=== PATIENT | female | born 1955 | race Caucasian/White ===

== ENCOUNTER → 2016-08-03 | Outpatient (CLI) | payer OTHER, MEDICARE ==
[~2016-08-03] MED LIST: ALBU0.5N2 NEB; ALBU18002 INH; ALBUAER INH; ASCO500T16 PO; CALC-354 PO; CHOL1000 PO; CLON1TAB3 PO; CLR10 PO; CYAN100020 PO; CYCL10TA6 PO; DICL1GEL28 TOP; DICL1GEL34 TOP; FLAX10007 PO; FLUT0.15 NAE; HYDR-4079 PO; HYDR-5688 PO; HYDR25TA4 PO; LEVO25TA PO; MELO15TA4 PO; MISCCAP80 PO; MULT-513 PO; Magnesium PO; PRED20TA PO; SERT50TA PO
--- NOTE | 2016-08-03 17:08 | DIAGNOSTIC IMAGING REPORT ---
MRI OF LUMBAR SPINE WITHOUT IV CONTRAST CLINICAL HISTORY: Low back pain. Right buttock pain. COMPARISON STUDY: Abdominal CT dated 12/23/2010. TECHNIQUE: MRI of the lumbar spine is performed utilizing various T1 and T2-weighted sequences in the axial and sagittal planes. IV contrast was not administered for this examination. FINDINGS: Lumbar spine: There is a mild chronic superior endplate compression deformity of L1. Vertebral body height is otherwise maintained throughout the lumbar spine. Alignment is preserved. There are postoperative changes from laminectomy at L4 and L5. There is no evidence of spondylolysis. The transverse and remaining spinous processes appear preserved. No destructive bony lesion is seen. Small hemangiomas are noted in the body of L4. Chronic degenerative endplate changes identified at L5-S1. Mild degenerative endplate edema is noted at L3-L4. Intervertebral discs: There is degenerative disc desiccation and loss of height throughout the lumbar spine. This is advanced at L5-S1. Spinal cord: The visualized spinal cord is normal in morphology and signal intensity. The conus medullaris terminates at the level of L1. There is tethering of the nerve roots of the cauda equina at L3-L4. L1-L2: There is a minimal posterior disc bulge. The central canal and neural foramina are patent. L2-L3: There is broad-based posterior disc bulge with annular fissure. In conjunction with hypertrophy of the ligamentum flavum, this causes mild acquired compromise of the central canal. The minimum AP canal diameter measures 8 mm. There is bilateral subarticular stenosis. The neural foramina are patent. Facet arthropathy is of no consequence. L3-L4: There is broad-based posterior disc bulge with annular fissure. In conjunction with hypertrophy of the ligamentum flavum, there is severe central canal stenosis at this level. The minimum AP diameter measures 1-2 mm. There may be impingement on the exiting bilateral L3 nerve roots as well as the transiting nerve roots. There is bilateral subarticular stenosis. Facet hypertrophy causes mild left greater than right neural foraminal stenosis. L4-L5: The central canal is patent. Facet arthropathy is of no consequence. There is a small disc fragment versus scarring/osteophyte formation eccentric to the left. This causes mass effect on the anterior left aspect of the thecal sac, and impinges on the transiting left-sided nerve roots. This is best seen on axial image 22. L5-S1: Facet arthropathy is of no consequence. The central canal and neural foramina are widely patent. Soft tissues: There is mild fatty atrophy of the paraspinous musculature. Postoperative change is seen at L4 and L5. The partially imaged retroperitoneal structures are grossly unremarkable noting left parapelvic renal cysts. The retroperitoneal structures are not well visualized. Sacrum: The visualized sacrum is normal in morphology and signal intensity. IMPRESSION: 1. Lumbosacral spondylosis with severe acquired compromise of the central canal at L3-L4. 2. There is a disc fragment versus scarring and osteophyte formation seen anteriorly and on the left at L4-L5. This impinges on the transiting left-sided nerve roots. 3. Spondylotic change at additional levels as above. See discussion for detailed level by level analysis. 4. There is a mild chronic compression deformity of L1. 5. There are postoperative changes from L4 and L5 laminectomy. Dictated: 08/03/2016 4:38 PM Transcribed: 08/03/2016 5:06 PM JOVITA_Jose Carlos Electronically signed by: Matt Fontenot M.D. 08/03/2016 5:08 PM Dictated Date/Time: 08/03/2016 4:38 PM
== END | disposition home or self-care (01) ==
LOC: C.MRI 15:46
PROVIDERS: ATTEND Orthopaedic Surgery Orthopaedic Surgery of the Spine
DX: M54.5 Low back pain (principal); M47.817 Spondylosis without myelopathy or radiculopathy, lumbosacral region; M47.816 Spondylosis without myelopathy or radiculopathy, lumbar region

== ENCOUNTER 2016-10-03 21:39 | Emergency (ER) | payer OTHER, MEDICARE ==
[~2016-10-03] VITALS: Ht 157.5 cm; Wt 91.1 kg
[~2016-10-03 21:39] MED LIST changes: -ALBU0.5N2 NEB; -ALBU18002 INH; -ASCO500T16 PO; -CLR10 PO; -DICL1GEL34 TOP; -HYDR-5688 PO; -MISCCAP80 PO; -PRED20TA PO
[2016-10-03 21:44] VITALS: BP 140/77; PULSE 120; TEMP 37; O2SAT 96; Ht 157.5 cm; Wt 91.1 kg
[2016-10-03] MEDS ORDERED: ALBU18002 INH (21:57)
[2016-10-03] MEDS ORDERED: DICL1GEL34 TOP (22:01)
[2016-10-03] MEDS ORDERED: GELATIN SPONGE 12-7MM ONE (22:02)
--- NOTE | 2016-10-04 06:40 | EMERGENCY ROOM VISIT NOTE ---
ED Visit Note First contact with patient: 21:51 CHIEF COMPLAINT: Finger laceration HISTORY OF PRESENT ILLNESS: This 60-year-old female patient presents to the emergency department after cutting the left thumb with a kitchen knife just prior to arrival. The bleeding has stopped. Denies weakness or numbness of the finger. The patient has full range of motion of the fingers. The patient rates the pain as dull and 4/10. The patient denies any other injuries. The patient' s tetanus shot is reportedly up to date. REVIEW OF SYSTEMS: A 6 system review of systems was completed with positives and pertinent negatives listed in the HPI. ALLERGIES: Oxycodone, penicillin MEDICATIONS: See EMR PMH: See EMR SOCIAL HISTORY: Lives locally with family PHYSICAL EXAM: Vital Signs: Reviewed Nurse's notes, vital signs stable. GENERAL : White female, in no acute distress, well developed, well nourished. SKIN: There is a 1.0 cm avulsion laceration to the very distal aspect of the left first finger. The edges do not gape apart with traction. There is no foreign material in the wound and it looks clean. There is mild bleeding. No deep structures such as tendons, bones, or significant blood vessels are seen in the base of the wound. Extension and flexion of the finger is full and strong. Full range of motion of the wrist and other fingers. Capillary refill less than 2 seconds. Normal sensation to light and sharp touch. EMERGENCY DEPARTMENT COURSE: Physical exam and history were performed. Nursing notes and EMR were reviewed. The patient appears to have suffered an avulsion laceration to the distal aspect of her left thumb. The fingernail is in place and the wound does not appear deep. The area was cleansed with Betadine and flushed with saline. A Gelfoam dressing was placed and hemostasis was accomplished. The patient is reportedly up-to-date on her tetanus and this was deferred. Overall the patient appears stable for discharge home and wound care instructions were discussed. She is invited back to the ER anytime with any new, worsening, or concerning symptoms. Problem List Medical Problems: (1) Chronic constipation Status: Chronic (2) Colitis Status: Resolved (3) Nausea Status: Resolved (4) Sciatic neuropathy Status: Chronic Surgical Problems: (1) Hx of splenectomy Status: Chronic Current/Historical Medications Scheduled Calcium Carbonate-Cholecalcife (Caltrate 600+D), 1 TAB PO BID Cholecalciferol (Vitamin D3), 1 TAB PO QAM Clonazepam (Klonopin), 1 MG PO HS Cyanocobalamin (Vitamin B12), 1 TAB PO QAM Cyclobenzaprine Hcl (Flexeril), 10 MG PO HS Flaxseed (Linseed) (Flax Seed Oil), 1 CAP PO QAM Hydrochlorothiazide (Hctz), 25 MG PO QAM Levothyroxine Sodium (Synthroid), 1 TAB PO DAILY Meloxicam (Mobic), 15 MG PO QAM Multivitamins/Minerals (Mvi With Minerals), 1 TAB PO QAM Sertraline (Zoloft), 50 MG PO HS [Magnesium], 250 MG PO DAILY Scheduled PRN Albuterol Sulfate (Proair Respiclick), 2 PUFFS INH QID PRN for SOB/Wheezing Diclofenac Sodium (Topical) (Diclofenac Sodium), 1 APPLN TOP QID PRN for Pain Fluticasone Propionate (Nasal) (Flonase Allergy Relief), 2 SPRAYS KATHY DAILY PRN for Allergy Symptoms Hydrocodone/Acetaminophen 10MG/325MG ([place] 10MG/325MG), 1-2 TABS PO UD PRN for Pain Allergies Coded Allergies: Oxycodone (Verified Allergy, Mild, ITCHING, 10/03/16) Penicillins (Verified Allergy, Unknown, UNKNOWN RXN, OCCURED A CHILD, ) Vital Signs Date Time Temp Pulse Resp B/P Pulse Ox O2 Delivery O2 Flow Rate FiO2 10/03/16 21:44 37.0 120 18 140/77 96 Room Air Departure Information Impression Primary Impression: Finger avulsion Dispostion Home / Self-Care Condition GOOD Forms WORK / SCHOOL INSTRUCTIONS, HOME CARE DOCUMENTATION FORM, IMPORTANT VISIT INFORMATION Patient Instructions My [facility] Additional Instructions You were seen and evaluated today on an emergency basis only. This is not a substitute for, or an effort to provide, complete comprehensive medical care. It is not possible to recognize and treat all injuries or illnesses in a single emergency department visit. For this reason it is recommended that you followup with your primary care physician with any ongoing or persistent symptoms. Your Gelfoam will need to stay in place for about 48 hours. You are welcome to return to the emergency department anytime with new, worsening, or concerning symptoms.
[2016-10-16] MEDS ORDERED: HYDR-5688 PO (08:54)
== END 2016-10-03 22:29 | disposition home or self-care (01) ==
LOC: C.EDB 21:40 → C.EDD 22:29
DX: S61.012A Laceration without foreign body of left thumb without damage to nail, initial encounter (principal); W26.0XXA Contact with knife, initial encounter; Z90.81 Acquired absence of spleen

== ENCOUNTER 2016-10-14 11:31 | Inpatient (IN) | payer OTHER, MEDICARE ==
[2016-09-15 11:30] VITALS: BMI 37.0
--- NOTE | 2016-09-15 12:12 | PAT Medication Instructions ---
Service Date Sep 15, 2016. Current Home Medication List Albuterol (Proventil Hfa), 2 PUFFS INH QID PRN for Wheezing Calcium Carbonate-Cholecalcife (Caltrate 600+D), 1 TAB PO BID Cholecalciferol (Vitamin D3), 1 TAB PO QAM Clonazepam (Klonopin), 1 MG PO HS Cyanocobalamin (Vitamin B12), 1 TAB PO QAM Cyclobenzaprine Hcl (Flexeril), 10 MG PO HS Diclofenac Sod (Voltaren 1% Top Gel), 1 APPLN TOP QID PRN for Pain Flaxseed (Linseed) (Flax Seed Oil), 1 CAP PO QAM Fluticasone Propionate (Nasal) (Flonase Allergy Relief), 2 SPRAYS KATHY DAILY PRN for Allergy Symptoms Hydrochlorothiazide (Hctz), 25 MG PO QAM Hydrocodone/Acetaminophen 10MG/325MG (Spicer 10MG/325MG), 1-2 TABS PO UD PRN for Pain Meloxicam (Mobic), 15 MG PO QAM Multivitamins/Minerals (Mvi With Minerals), 1 TAB PO QAM Sertraline (Zoloft), 50 MG PO HS Medication Instructions For Your Scheduled Surgery Meloxicam (Mobic), 15 MG PO QAM (patient will check with surgeon for instructions) - Hold the following medications 2 weeks prior to surgery: Flaxseed (Linseed) (Flax Seed Oil), 1 CAP PO QAM - Hold the following medications 24 hours prior to surgery: Diclofenac Sod (Voltaren 1% Top Gel), 1 APPLN TOP QID PRN for Pain - Hold the following medications the morning of surgery: Multivitamins/Minerals (Mvi With Minerals), 1 TAB PO QAM Hydrochlorothiazide (Hctz), 25 MG PO QAM Cyanocobalamin (Vitamin B12), 1 TAB PO QAM Cholecalciferol (Vitamin D3), 1 TAB PO QAM Calcium Carbonate-Cholecalcife (Caltrate 600+D), 1 TAB PO BID - Take the following medications the morning of surgery with a sip of water: Hydrocodone/Acetaminophen 10MG/325MG (Spicer 10MG/325MG), 1-2 TABS PO UD PRN for Pain (can take up to four hours prior to surgery if needed) Fluticasone Propionate (Nasal) (Flonase Allergy Relief), 2 SPRAYS KATHY DAILY PRN for Allergy Symptoms Albuterol (Proventil Hfa), 2 PUFFS INH QID PRN for Wheezing (bring with you to hospital on day of surgery) - Take the following medications as scheduled the night before surgery: Sertraline (Zoloft), 50 MG PO HS Hydrocodone/Acetaminophen 10MG/325MG (Spicer 10MG/325MG), 1-2 TABS PO UD PRN for Pain Fluticasone Propionate (Nasal) (Flonase Allergy Relief), 2 SPRAYS KATHY DAILY PRN for Allergy Symptoms Cyclobenzaprine Hcl (Flexeril), 10 MG PO HS Clonazepam (Klonopin), 1 MG PO HS Calcium Carbonate-Cholecalcife (Caltrate 600+D), 1 TAB PO BID Albuterol (Proventil Hfa), 2 PUFFS INH QID PRN for Wheezing If you have any questions please call us at [phone] or [phone] ( Lilly) or [phone]
[2016-09-15 13:10] LABS: BASO % 0.8 %; BASO ABS # 0.06 K/uL (0-0.2); COMPLETE YES; EOS % 1.8 %; HEMATOCRIT 39.1 % (37-47); IG% 0.1 %; LYMPH % 30.5 %; LYMPH ABS # 2.25 K/uL (1.2-3.4); MEAN CELL VOLUME 91.8 fL (80-100); MEAN CORPUSCULAR HEMOGLOBIN 32.9 pg (25-34); MEAN CORPUSCULAR HGB CONC 35.8 g/dl (32-36); MEAN PLATELET VOLUME 9.2 fL (7.4-10.4); MONO % 8.8 %; PLATELET COUNT 420 K/uL (130-400); RED BLOOD COUNT 4.26 M/uL (4.2-5.4); WHITE BLOOD COUNT 7.37 K/uL (4.8-10.8)
[2016-09-15 13:21] LABS: URINE APPEARANCE CLEAR (CLEAR); URINE BILIRUBIN NEG (NEG); URINE COLOR YELLOW; URINE EPITHELIAL CELL AUTO 0-5 /lpf (0-5); URINE NITRITE NEG (NEG); URINE PH 6.5 (4.5-7.5); URINE SPECIFIC GRAVITY 1.004 (1.000-1.030); UROBILINOGEN NEG (NEG)
[2016-09-15 13:28] LABS: MANUAL MICROSCOPIC REQUIRED? NO; REVIEW REQ? NO
[2016-09-15 13:47] LABS: BUN/CREATININE RATIO 19.2 (10-20); CALCIUM 9.2 mg/dl (8.5-10.1); CREATININE 0.91 mg/dl (0.60-1.20); POTASSIUM 3.9 mmol/L (3.5-5.1)
[2016-09-15 14:43] LABS: THYROID STIMULATING HORMONE 6.3 uIu/ml (0.300-4.500)
--- NOTE | 2016-10-13 12:06 | HISTORY & PHYSICAL EXAMINATION ---
DATE OF ADMISSION: 10/14/2016 HISTORY OF PRESENT ILLNESS: The patient presents to our office with complaint of left leg pain greater than right, involving the anterior thighs and shins. With prolonged standing she has hypersensitivity as well as numbness into the left foot. Denies bowel or bladder dysfunction. She has undergone prior discectomy in 1994 as well as 1997 and third surgery including lumbar fusion L4-S1 in 2000 in [place], [place]. She takes [place] rarely for pain control. PAST MEDICAL HISTORY: The patient's medical history is significant for asthma, anxiety, hypothyroidism, spherocytosis, obesity. PAST SURGICAL HISTORY: Significant for multiple lumbar surgeries, knee replacement, bilateral tubal ligation, eye surgery, splenectomy, left shoulder surgery, arthrocentesis of the right knee. ALLERGIES: INCLUDE PENICILLIN, TYLENOL AND OXYCODONE. FAMILY HISTORY: Significant for breast cancer, arthritis, [place] and stroke. SOCIAL HISTORY: She works at [employer]. She is . She has 2 children. Alcohol is a glass of wine every week. Tobacco use she denies. REVIEW OF SYSTEMS: Significant for back pain and leg pain. PHYSICAL EXAMINATION: HEAD, EYES, EARS, NOSE, AND THROAT: Speech appropriate. CARDIOPULMONARY: No gross abnormalities. ABDOMEN: Soft, nontender. GENITOURINARY: Deferred. NEUROLOGIC: Cranial nerves II-XII grossly intact. MUSCULOSKELETAL: Ambulates with an independent steady gait. She has well-healed lumbar incision. Strength is intact bilateral lower extremities. Sensation is intact. ASSESSMENT: Spinal stenosis L3-4. PLAN: At this point in time, we have discussed surgical intervention which would require lumbar decompression L3-4, possible L4-5, instrumented fusion L3-4, L4-5. Risks, benefits, pros, cons and alternatives were outlined in detail. She would like to proceed with the above-mentioned surgical planning.
[~2016-10-14] VITALS: Ht 157.5 cm; Wt 92.5 kg
[2016-10-14] VITALS (9 sets, daily range): BP systolic 114–125; BP diastolic 71–82; PULSE 75–117; TEMP 36.3–37; O2SAT 72–99; Ht 157.5 cm; Wt 92.5 kg
--- NOTE | 2016-10-14 07:30 | History & Physical Bridge Note ---
H&P Re-Evaluation Bridge Note: I have examined the patient, reviewed the History & Physical and in the interval since the performance of the History & Physical I have noted the following changes of clinical significance: No changes noted
[~2016-10-14 11:31] MED LIST changes: +ALBU18002 INH; -ALBUAER INH; +ATROPINE SULFATE 0.1 MG/ML 5ML SYR IV PRN; +CEFAZOLIN 2000 MG/60 ML D5W IV SCH; -DICL1GEL28 TOP; +DICL1GEL34 TOP; +EpHEDrine SULFATE INJ 50 MG/ML AMP IV PRN; +FENTANYL CITRATE INJ 50 MCG/1 ML 2 ML VIAL IV PRN; +LACTATED RINGER'S 1000ML 1,000 ML IV SCH; +ONDANSETRON INJ 2 MG/ML 2 ML VIAL IV PRN
[2016-10-14] MEDS ORDERED: CLR10 PO (12:18)
[2016-10-14] MEDS ORDERED: CEFAZOLIN IV 2,000 MG/60 ML D5W IV ONE (12:27)
[2016-10-14] MEDS ORDERED: FENTANYL CITRATE INJ 50 MCG/1 ML 2 ML VIAL ONE ×3 (14:22→17:12)
[2016-10-14] MEDS ORDERED: MIDAZOLAM HCL 1 MG/ML 2ML VIAL ONE (14:22)
[2016-10-14] MEDS ORDERED: PROPOFOL IV EMULSION 10 MG/ML 20 ML VIAL IV ONE (14:29)
[2016-10-14] MEDS ORDERED: ROCURONIUM BROMIDE 10 MG/ML 5 ML VIAL ONE (14:29)
[2016-10-14] MEDS ORDERED: LIDOCAINE HCL 2% 2 ML VIAL (20MG/ML) ONE (14:29)
[2016-10-14] MEDS ORDERED: SODIUM CHLORIDE 0.9% PF 50 ML VIAL ONE (14:34)
[2016-10-14] MEDS ORDERED: BUPIVACAINE/EPINEPHRINE 0.5% MPF 1:200,000 30 ML VIAL ONE (14:34)
[2016-10-14] MEDS ORDERED: BACITRACIN 50000 UNIT VIAL ONE (14:34)
[2016-10-14] MEDS ORDERED: NURSING VERBAL MED ORDER STA (14:37)
[2016-10-14] MEDS ORDERED: CLINDAMYCIN 600 MG/54 ML D5W IV ONE (14:41)
[2016-10-14] MEDS ORDERED: ONDANSETRON INJ 2 MG/ML 2 ML VIAL ONE (15:09)
[2016-10-14] MEDS ORDERED: GLYCOPYRROLATE INJ 0.2 MG/ML VIAL ONE (15:09)
[2016-10-14] MEDS ORDERED: NEOSTIGMINE METHYLSULFATE 1 MG/ML 10ML VIAL ONE (15:09)
[2016-10-14] MEDS ORDERED: DEXAMETHASONE SOD INJ 4 MG/ML VIAL ONE (15:09)
[2016-10-14] MEDS ORDERED: HYDROmorphone INJ 2 MG/ML SYR/VIAL ONE (15:23)
[2016-10-14] MEDS ORDERED: FLOSEAL HEMOSTATIC MATRIX 10ML TOP ONE (16:07)
[2016-10-14] MEDS ORDERED: SODIUM CHLORIDE 0.9% 1000ML 1,000 ML IV SCH (16:14)
[2016-10-14] MEDS ORDERED: ONDANSETRON INJ 2 MG/ML 2 ML VIAL IV PRN ×2 (16:15→17:15)
[2016-10-14] MEDS ORDERED: SOD PHOSPHATE/SOD BIPHOSPHATE ENEMA 132 ML BTL PR PRN (16:15)
[2016-10-14] MEDS ORDERED: DO NOT ADMINISTER FLU VACCINE PRN ×3 (16:15)
[2016-10-14] MEDS ORDERED: LORAZEPAM 0.5 MG TAB PO PRN (16:15)
[2016-10-14] MEDS ORDERED: ACETAMINOPHEN 500 MG TAB PO PRN (16:15)
[2016-10-14] MEDS ORDERED: ACETAMINOPHEN IV 100 ML IV PRN (16:15)
[2016-10-14] MEDS ORDERED: PROMETHAZINE HCL INJ 12.5 MG in SODIUM CHLORIDE 0.9% 50ML 50 ML IV PRN (16:15)
[2016-10-14] MEDS ORDERED: FAMOTIDINE 20 MG TAB PO PRN (16:15)
[2016-10-14] MEDS ORDERED: NALOXONE HCL 0.4 MG/1 ML VIAL/CARP IV PRN ×2 (16:15)
[2016-10-14] MEDS ORDERED: ALUMINUM/MAGNESIUM SUSP 30 ML UDC PO PRN (16:15)
[2016-10-14] MEDS ORDERED: MAGNESIUM HYDROXIDE SUSP 30 ML UDC PO PRN (16:15)
[2016-10-14] MEDS ORDERED: LORAZEPAM INJ 0.5 MG in SYRINGE 0.75 ML IV PRN (16:15)
[2016-10-14] MEDS ORDERED: METOCLOPRAMIDE HCL INJ 5 MG/ML 2 ML VIAL IV PRN (16:15)
[2016-10-14] MEDS ORDERED: DO NOT ADMINISTER PNEUMOCOCCAL VACCINE PRN ×2 (16:15)
[2016-10-14] MEDS ORDERED: BISACODYL 10 MG SUPP PR PRN (16:15)
[2016-10-14] MEDS ORDERED: hydrOXYzine HCL 25 MG TAB PO PRN (16:15)
--- NOTE | 2016-10-14 16:36 | DIAGNOSTIC IMAGING REPORT ---
Lumbar spine LUMBAR SPINE 2 OR 3 VIEW CLINICAL HISTORY: L3-L5 DECOMPRESSION TECHNIQUE: Image intensifier COMPARISON STUDY: None FINDINGS: Lumbar laminectomy and fusion. IMPRESSION: Lumbar laminectomy and fusion Electronically signed by: Justin Jensen M.D. 10/14/2016 4:35 PM Dictated Date/Time: 10/14/2016 4:35 PM
--- NOTE | 2016-10-14 16:44 | OPERATIVE REPORT ---
DATE OF OPERATION: 10/14/2016 PREOPERATIVE DIAGNOSIS: Spinal stenosis. POSTOPERATIVE DIAGNOSIS: Same. PROCEDURES PERFORMED: 1. Revision decompression, medial facetectomy and foraminotomy L3-4 and L4-5. 2. Posterior spinal fusion, L3-4 and L4-5. 3. Placement posterior segmental instrumentation using Orthovisc rods and screws, L3-4 and L4-5. 4. Placement of Infuse collagen sponge combined with Mastergraft in posterior gutters. 5. Placement of locally harvested morselized autograft posterior gutters. SURGEON: Severiano Rodriguez DO ECONOMIC SPECIALIST: Chelo Sanchez PA-C. Due to the complex nature of the procedure, the entire surgery was performed with the warehouse assistant of JEANETH Dewey. The assistant professor of archaeology, under direct supervision, was involved in the actual performance of all aspects of the surgical procedure including hemostasis, tissue retraction and incision, instrument management, patient positioning, and wound closure. ANESTHESIA: General. DISPOSITION: The patient awakened and taken to PACU in stable condition. HISTORY OF PATIENT'S PROBLEMS: This is a 60-year-old female that presents with the above-mentioned diagnosis. After failing an extensive course of nonoperative care, elected to undergo the above-mentioned procedure. Risks, benefits, pros, cons, and alternatives were outlined in detail preoperatively. DESCRIPTION OF PROCEDURE: The patient was met preoperatively, the case discussed and all questions were addressed. At that point, the patient was taken back to operative suite and after undergoing successful general intubation by the department of anesthesia, was placed in prone position on Clyde table atop Frankie frame. All bony prominences were well padded and the eyes were inspected to ensure there was no external pressure placed upon them. At this point, lumbar spine was prepped and draped in normal sterile fashion. Sharp dissection with the assistance of Bovie cautery was performed down to and exposing the remaining lamina and transverse processes of L3, L4, and L5 bilaterally. From a caudal to cephalad fashion, a revision complete laminectomy of L3 was performed and a revision decompression L4-5. Pedicle screws were then placed, severe recess stenosis was addressed. Pedicle screws were then placed in L3, L4, and L5 bilaterally with assistance of fluoroscopy and appropriate size tsephen locked into position. The transverse processes of L3, L4, and L5 were then burred to subcortical bleeding bone. Infuse collagen sponge combined with Mastergraft and locally harvested morselized autograft was placed in the posterior gutters. A 7 flat ARMANDO drain was inserted. Incision was closed with 1-0 Vicryl in the fascia, 2-0 Vicryl subcutaneously, 4-0 Monocryl for final skin closure. Steri-Strips and sterile dressing was placed. The patient was awakened and taken to PACU in stable condition. I attest to the content of the Intraoperative Record and any orders documented therein. Any exceptio ns are noted below.
[2016-10-14] MEDS ORDERED: PHENYLEPHRINE 100MCG/ML 5ML SYR ONE (17:10)
[2016-10-14] MEDS: FENTANYL CITRATE INJ 50 MCG/1 ML 2 ML VIAL IV PRN ×2 (17:10→17:25)
[2016-10-14] MEDS ORDERED: HYDROmorphone HCL 0.5MG/ML 50 ML CASSETTE ONE (17:11)
[2016-10-14] MEDS ORDERED: EpHEDrine SULFATE INJ 50 MG/ML AMP IV PRN (17:15)
[2016-10-14] MEDS ORDERED: ATROPINE SULFATE 0.1 MG/ML 5ML SYR IV PRN (17:15)
[2016-10-14] MEDS ORDERED: LABETALOL HCL IV 5 MG/ML 20ML IV PRN (17:15)
[2016-10-14] MEDS ORDERED: MEPERIDINE HCL 25 MG/ML CARP IV PRN (17:15)
[2016-10-14] MEDS ORDERED: HYDROmorphone INJ 0.5 MG/0.5 ML SYR IV PRN (17:15)
--- NOTE | 2016-10-14 17:35 | Anesthesiology Progress Note ---
Anesthesia Post Op Note Date & Time Oct 14, 2016 at 17:35 Vital Signs Pain Intensity: 7 Vital Signs Past 12 Hours Date Time Temp Pulse Resp B/P Pulse Ox O2 Delivery O2 Flow Rate FiO2 10/14/16 17:00 36.4 103 20 134/75 100 Mask 10 10/14/16 11:52 37.0 108 20 95 Room Air Notes Mental Status: alert / awake / arousable, participated in evaluation Pt Amnestic to Procedure: Yes Nausea / Vomiting: adequately controlled Pain: adequately controlled Airway Patency, RR, SpO2: stable & adequate BP & HR: stable & adequate Hydration State: stable & adequate Anesthetic Complications: no major complications apparent
[2016-10-14] MEDS: HYDROmorphone HCL 0.5MG/ML 50 ML CASSETTE IV PRN ×2 (18:10→22:51)
[2016-10-14] MEDS: SODIUM CHLORIDE 0.9% 1000ML 1,000 ML IV SCH ×2 (19:00→21:38)
[2016-10-14] MEDS: DEXAMETHASONE INJ 6 MG in SYRINGE 0 ML IV SCH (20:06)
[2016-10-14] MEDS: CLINDAMYCIN IV 600 MG in DEXTROSE 5% ADD-VANTAGE 50ML 50 ML IV SCH (20:49)
[2016-10-14] MEDS: SERTRALINE HCL 50 MG TAB PO SCH (20:54)
[2016-10-14] MEDS: DOCUSATE SODIUM/SENNA 50/8.6MG TAB PO SCH (20:54)
[2016-10-14] MEDS: CLONAZEPAM 1 MG TAB PO SCH (21:38)
[2016-10-15 03:17] VITALS: BP 97/60; PULSE 81; TEMP 36.4; O2SAT 98
[2016-10-15] MEDS: DEXAMETHASONE INJ 6 MG in SYRINGE 0 ML IV SCH ×2 (03:56→12:34)
[2016-10-15] MEDS ORDERED: HYDROmorphone INJ 0.5 MG/0.5 ML SYR IV PRN (06:00)
[2016-10-15] MEDS ORDERED: DC PCA ONE (06:00)
[2016-10-15] MEDS ORDERED: HYDROmorphone INJ 1 MG/ML SYR IV PRN (06:00)
[2016-10-15] MEDS: LEVOTHYROXINE 25 MCG TAB PO SCH (06:21)
[2016-10-15] MEDS: CLINDAMYCIN IV 600 MG in DEXTROSE 5% ADD-VANTAGE 50ML 50 ML IV SCH (06:22)
[2016-10-15] MEDS: SODIUM CHLORIDE 0.9% 1000ML 1,000 ML IV SCH (06:22)
[2016-10-15 06:47] LABS: BUN/CREATININE RATIO 17.3 (10-20); CALCIUM 8.2 mg/dl (8.5-10.1); CREATININE 0.96 mg/dl (0.60-1.20); POTASSIUM 4.1 mmol/L (3.5-5.1)
[2016-10-15 06:56] VITALS: BP 110/73; PULSE 82; TEMP 36.4; O2SAT 96
[2016-10-15 07:16] LABS: COMPLETE YES; HEMATOCRIT 33.7 % (37-47); IG% 0.4 %; LYMPH % 4.7 %; LYMPH ABS # 0.74 K/uL (1.2-3.4); MEAN CELL VOLUME 93.4 fL (80-100); MEAN CORPUSCULAR HEMOGLOBIN 32.4 pg (25-34); MEAN CORPUSCULAR HGB CONC 34.7 g/dl (32-36); MEAN PLATELET VOLUME 9.4 fL (7.4-10.4); NEUT % 91.9 %; PLATELET COUNT 382 K/uL (130-400); RED BLOOD COUNT 3.61 M/uL (4.2-5.4)
[2016-10-15] MEDS: HYDROCODONE/ACETAMOPHEN 5/325MG TAB PO PRN ×2 (07:54→21:33)
--- NOTE | 2016-10-15 08:56 | PROGRESS NOTE ---
DATE: 10/15/2016 Postop day 1. Back pain controlled. Leg pain improved. Vital signs stable. T-max 36.4. ARMANDO drained 65 mL. Hematocrit this a.m. 33.7. PHYSICAL EXAMINATION: She has good strength to testing, appears comfortable. ASSESSMENT: Status post lumbar decompression and fusion. PLAN: At this time, will initiate physical therapy, advance her bowel regimen and anticipate discharge Wednesday or Wednesday. Hopefully to [facility] or at least with home health.
[2016-10-15] MEDS: LORATADINE 10 MG TAB PO SCH (09:00)
[2016-10-15] MEDS ORDERED: NURSING VERBAL MED ORDER ONE ×2 (09:00→09:30)
[2016-10-15] MEDS: HYDROCHLOROTHIAZIDE 25 MG TAB PO SCH (09:00)
--- NOTE | 2016-10-15 10:45 | Anesthesiology Progress Note ---
Anesthesia Post Op Note Date & Time Oct 15, 2016 at 10:44 Vital Signs Vital Signs Past 12 Hours Date Time Temp Pulse Resp B/P Pulse Ox O2 Delivery O2 Flow Rate FiO2 10/15/16 06:56 36.4 82 20 110/73 96 Nasal Cannula 4.0 10/15/16 03:17 36.4 81 14 97/60 98 Nasal Cannula 4.0 10/14/16 23:04 36.3 101 16 117/77 98 Nasal Cannula 4.0 10/14/16 22:45 117 6 72 Room Air 10/14/16 22:45 72 Room Air Notes Mental Status: alert / awake / arousable, participated in evaluation Pt Amnestic to Procedure: Yes Nausea / Vomiting: adequately controlled Pain: adequately controlled Airway Patency, RR, SpO2: stable & adequate BP & HR: stable & adequate Hydration State: stable & adequate Anesthetic Complications: no major complications apparent
[2016-10-15 14:56] VITALS: BP 113/71; PULSE 71; TEMP 36.8; O2SAT 96
[2016-10-15] MEDS: DOCUSATE SODIUM/SENNA 50/8.6MG TAB PO SCH (20:39)
[2016-10-15] MEDS: SERTRALINE HCL 50 MG TAB PO SCH (20:39)
[2016-10-15] MEDS: CLONAZEPAM 1 MG TAB PO SCH (20:40)
[2016-10-15] MEDS ORDERED: NURSING DECISION MEDICATION ORDER SCH (21:00)
[2016-10-15] MEDS ORDERED: COUGH DROP (SUGAR FREE) LOZ 24 LOZ/1 BOX ONE (21:04)
[2016-10-15] MEDS ORDERED: COUGH DROP (SUGAR FREE) LOZ 24 LOZ/1 BOX PO PRN (21:15)
[2016-10-15 23:24] VITALS: BP 110/65; PULSE 76; TEMP 36.3; O2SAT 94
[2016-10-16] MEDS: ALBUTEROL HFA INHALER 8.5 GM INH PRN ×3 (01:33→22:14)
[2016-10-16] MEDS: FLUTICASONE PROPIONATE NA SPR 16 GM BTL NAE PRN ×2 (01:33→22:13)
[2016-10-16] MEDS: LORATADINE 10 MG TAB PO SCH (02:37)
[2016-10-16] MEDS: LEVOTHYROXINE 25 MCG TAB PO SCH (06:08)
[2016-10-16] MEDS: POLYETHYLENE (MIRALAX) 17 GM PACK PO SCH ×3 (06:08→18:00)
[2016-10-16 06:27] VITALS: BP 104/68; PULSE 84; TEMP 36.6; O2SAT 96
[2016-10-16] MEDS: HYDROCHLOROTHIAZIDE 25 MG TAB PO SCH (07:46)
[2016-10-16] MEDS: HYDROCODONE/ACETAMOPHEN 5/325MG TAB PO PRN ×3 (07:47→22:16)
[2016-10-16] MEDS ORDERED: HYDR-5688 PO (08:54)
--- NOTE | 2016-10-16 08:55 | Discharge Instructions ---
Discharge Instructions Date of Service Oct 16, 2016. Admission Reason for Admission: Spinal Stenosis Discharge Discharge Diagnosis / Problem: stenosis Discharge Goals Goal(s): Improve function Activity Recommendations Activity Limitations: per Instructions/Follow-up section . Instructions / Follow-Up Instructions / Follow-Up ACTIVITY RECOMMENDATIONS: SELF CARE INSTRUCTIONS AFTER THORACIC/LUMBAR FUSIONS 1. You may walk to your tolerance. It is good exercise for your legs and back. Expect some back and intermittent leg aches and pains. 2. You may perform "counter-top" level activities (make a sandwich, tommy with a project, etc.). 3. No bending or lifting of more than 10 pounds or back twisting of any nature (roll like a log when turning in bed). 4. You may ride in a car for 20-30 minutes at a time. No driving until after your first visit with your doctor. 5. Frequent changes of position and restricting sitting to 30 minutes at a time will help limit the amount of back spasms and stiffness you may experience. 6. You may discontinue the use of ambulatory aids (cane, crutches, etc.) once your strength and confidence allow. 7. You may primer inspector the shower and let water strike your incision when you arrive home at least once daily. Do not take a tub bath, sit in a hot tub or go into a swimming pool until after your first recheck in the office. SPECIAL CARE INSTRUCTIONS: VERY IMPORTANT TO READ AND REVIEW A. Your surgical incision has been closed with a cosmetic suture under the skin that will dissolve in about 6 weeks. In 14 days, you can use a pair of clean scissors and cut the suture that is left outside of the skin at the ends of your incision. 1. The small skin tapes can be removed 7 days after surgery if they have not fallen off by that point. 2. You may keep the wound open to air as much as possible to promote healing after post-op day number 5 unless told otherwise by your doctor. 3. If you think the wound looks like it is becoming infected (redness or worsening drainage) and/or you are experiencing fever, chill or worsening back pain and muscle spasms, contact the office so that we may evaluate you as soon as possible. B. Complications are uncommon, but please contact us if you have any signs or symptoms of: 1. wound infection (fever higher than 102.5 degrees F, redness, separation of wound, drainage, or increasing pain from the incision) 2. blood clots in legs (pain, swelling, redness and warmth in legs) 3. urinary tract infection (fever higher than 102.5 degrees F, burning upon urination or increased frequency of urination) 4. nerve problems (inability to walk on your toes or heels, numbness, loss of bowel or bladder control) 5. any other symptoms that concern you C. Please call the office at if you have any concerns or questions about your operation or recovery. D. No smoking! Smoking drastically decreases the chance of a solid fusion. E. Do not take any anti-inflammatory medications (Indocin, Advil, Motrin, Aspirin, Naprosyn, etc.) as these may inhibit the chance of a solid fusion. Tylenol is okay to take for pain. MANAGING PAIN AFTER SPINAL SURGERY 1. Narcotic medication is intended for short-term use and will be provided for surgical pain. Surgical pain usually lasts for a period of 4-6 weeks. Narcotic medication includes Percocet, Vicodin, Darvocet, Tylenol #3 or Lortab. 2. Longer-term pain is more appropriately treated with non-narcotic medication such as Tylenol ES. 3. Muscle spasm is not appropriately treated with narcotics. Muscle relaxers such as Soma, Flexeril or Skelaxin can be used along with Tylenol ES. 4. Remember that we all live with some "aches and pains". This is not unusual or uncommon after an injury or as we get older. a. Back pain is expected and may include muscle spasms for 4 to 6 weeks after surgery. The pain should gradually improve. If the pain worsens for no apparent reason, please contact the office. b. Intermittent leg pain may also be experienced and should not be concerned about unless it worsens for no apparent reason. If so, please contact the office. 5. We will provide appropriate medication within the normal guidelines of their prescribed use. We will also be very cautious and aware of potential abuse and extended duration of patients' medication needs. a. Pain medications are for your comfort and to assist with sleep and rest so that the tissue can heal. They are not provided in order to return to normal activity and should not be used through the day. To do so or worsening pain at night can result from ongoing tissue damage and development of tolerance to the prescribed medicine. 6. Please allow 2-3 days to process refills. Prescriptions will not be mailed but must be picked up at the office. FOLLOW UP VISIT: Keep your scheduled follow-up appointment. Any questions, please call the office at . Current Hospital Diet Patient's current hospital diet: Regular Diet Discharge Diet Recommended Diet: Regular Diet Procedures Procedures Performed: L3-L4, L4-L5 Lumbar Decompression/Laminectomy, Discectomy Pedicle Screw Fixation, Application of Bone Graft, Application of Bone Morphogenetic Protein, and Posterolateral Gutter Fusion Pending Studies Studies pending at discharge: no Medical Emergencies . Who to Call and When: Medical Emergencies: If at any time you feel your situation is an emergency, please call 911 immediately. . Non-Emergent Contact Non-Emergency issues call your: Primary Care Provider . "Provider Documentation" section prepared by Severiano Rodriguez. VTE Core Measure Inpt VTE Proph given/why not?: Dimitri Garcia, DILEEP's
[2016-10-16 15:19] VITALS: BP 95/63; PULSE 87; TEMP 36.5; O2SAT 99
--- NOTE | 2016-10-16 15:40 | PROGRESS NOTE ---
DATE: 10/16/2016 DATE: 10/16/2016. SUBJECTIVE: Postop day 2. Back pain controlled. Vital signs stable. T-max 36.6. ARMANDO drained 100 mL today. Hematocrit this a.m. is 33.7. OBJECTIVE: On exam, she has good strength to testing, appears comfortable. ASSESSMENT: Status post lumbar decompression and fusion. PLAN: At this time, will maintain the ARMANDO drain overnight. Assess her progress in the morning most likely discharge to [facility] tomorrow.
[2016-10-16] MEDS: CLONAZEPAM 1 MG TAB PO SCH (22:14)
[2016-10-16] MEDS: DOCUSATE SODIUM/SENNA 50/8.6MG TAB PO SCH (22:16)
[2016-10-16] MEDS: SERTRALINE HCL 50 MG TAB PO SCH (22:16)
[2016-10-16] MEDS ORDERED: NURSING DECISION MEDICATION ORDER SCH (22:30)
[2016-10-16 22:57] VITALS: BP 115/76; PULSE 98; TEMP 36.7; O2SAT 96
[2016-10-17] MEDS: LEVOTHYROXINE 25 MCG TAB PO SCH (05:53)
[2016-10-17 06:03] VITALS: BP 108/74; PULSE 102; TEMP 36.6; O2SAT 94
[2016-10-17] MEDS: LORATADINE 10 MG TAB PO SCH (07:25)
[2016-10-17] MEDS: HYDROCHLOROTHIAZIDE 25 MG TAB PO SCH (07:25)
[2016-10-17] MEDS: HYDROCODONE/ACETAMOPHEN 5/325MG TAB PO PRN ×2 (07:27→15:34)
[2016-10-17 09:10] VITALS: BP 119/86; PULSE 110; O2SAT 96
--- NOTE | 2016-10-17 10:37 | DISCHARGE SUMMARY ---
DATE OF DISCHARGE: 10/17/2016. PRINCIPAL DIAGNOSIS: Spinal stenosis. HOSPITAL COURSE FOLLOWS: On 10/14/2016 patient underwent lumbar decompression and fusion, tolerated this well and taken to the orthopedic floor postoperatively. Postop day #1, she was up and ambulatory. Leg pain improved and progressed to postop day #2. Postop day #3, ARMANDO drain decreased appropriately. Pain well controlled. Subsequently discharged to [facility]. Discharge orders and instructions can be found on the chart for further review.
[2016-10-17 15:03] VITALS: BP 121/73; PULSE 93; TEMP 36.9; O2SAT 99
[2016-10-17 15:46] VITALS: BP 121/73; PULSE 93; TEMP 36.9; O2SAT 99
== END 2016-10-17 16:06 | DRG 460 ==
LOC: ENRESERVTM → ENRESERVDT → C.ACU 11:31 → C.3E 14:20
PROVIDERS: ADMIT Orthopaedic Surgery Orthopaedic Surgery of the Spine; ATTEND Orthopaedic Surgery Orthopaedic Surgery of the Spine
PROC: 0SG10A1 (ICD-10-PCS; principal; 2016-10-14 13:20)
DX: M48.06 Spinal stenosis, lumbar region (principal); J45.909 Unspecified asthma, uncomplicated; E03.9 Hypothyroidism, unspecified

== ENCOUNTER 2016-10-22 14:53 | Inpatient (IN) | payer OTHER, MEDICARE ==
[~2016-10-22] VITALS: Ht 157.5 cm; Wt 91.0 kg
[~2016-10-22 14:53] MED LIST changes: -ATROPINE SULFATE 0.1 MG/ML 5ML SYR IV PRN; -CEFAZOLIN 2000 MG/60 ML D5W IV SCH; +CLR10 PO; -EpHEDrine SULFATE INJ 50 MG/ML AMP IV PRN; -FENTANYL CITRATE INJ 50 MCG/1 ML 2 ML VIAL IV PRN; +HYDR-5688 PO; -LACTATED RINGER'S 1000ML 1,000 ML IV SCH; -MELO15TA4 PO; -ONDANSETRON INJ 2 MG/ML 2 ML VIAL IV PRN
[2016-10-22] MEDS ORDERED: SODIUM CHLORIDE 0.9% 1000ML 1,000 ML IV STA (16:20)
[2016-10-22] MEDS ORDERED: MoRPHine SULFATE 4 MG/ML 1 ML CARP\\VIAL IV STA (16:38)
--- NOTE | 2016-10-22 16:44 | EMERGENCY ROOM VISIT NOTE ---
ED Visit Note First contact with patient: 15:24 Resident Physician Supervision Note: I was present with Dr. Maharaj during the history and exam. I discussed the case with the resident and agree with the findings and plan as documented in the note. Documented By: Silvio Shukla
--- NOTE | 2016-10-22 17:04 | EMERGENCY ROOM VISIT NOTE ---
History First contact with patient: 15:46 Chief Complaint: BACK PAIN Stated Complaint: RECENT BACK SX, NERVE PAIN, SENT BY DR RODRIGUEZ History of Present Illness The patient is a 60 year old female with hx of Lumbar stenosis s/p Surgical decompression by Dr. Rodriguez on 10/14 2016 who presents to the Emergency Room with complaints of progressive lower back pain, bilateral pain in the buttocks, and anterior thigh burning sensation. Patient reports 24 hrs of relief following surgery and following by a appearance of previous symptoms that she felt prior to surgery. Back pain is 8/10 worse on sitting . Patient was discharged to rehab facility x3 day from hospital on 10/17 following surgery. While in rehab, patient noticed worsening back pain , buttock pain bilaterally, and burning ant. thigh pain . She also reports episode of difficulty controlling her bladder on day of arrival around 12: 30 PM. She reports significant urgency without dysuria. Subsequent episode of urination showed improvement in these symptoms. She denies numbness, weakness, tingling, chest pain, palpitation, sob. fevers, chills. Review of Systems See HPI for pertinent positives & negatives. A total of 10 systems reviewed and were otherwise negative. Past Medical/Surgical History Medical Problems: (1) Chronic constipation (2) Colitis (3) Lumbar stenosis with neurogenic claudication (4) Nausea (5) Sciatic neuropathy Surgical Problems: (1) Hx of splenectomy Family History No pertinent family history Social History Smoking Status: Never Smoker Alcohol Use: none Housing Status: lives with family Occupation Status: disabled Current/Historical Medications Scheduled Ascorbic Acid (Ascorbic Acid), 500 MG PO DAILY Calcium Carbonate-Cholecalcife (Caltrate 600+D), 1 TAB PO BID Cholecalciferol (Vitamin D3), 1 TAB PO QAM Clonazepam (Klonopin), 1 MG PO HS Cyanocobalamin (Vitamin B12), 1 TAB PO QAM Cyclobenzaprine Hcl (Flexeril), 10 MG PO HS Flaxseed (Linseed) (Flax Seed Oil), 1 CAP PO QAM Hydrochlorothiazide (Hctz), 25 MG PO QAM Levothyroxine Sodium (Synthroid), 1 TAB PO DAILY Loratadine (Claritin), 10 MG PO DAILY Multivitamins/Minerals (Mvi With Minerals), 1 TAB PO QAM Probiotic Product (Probiotic), 1 CAP PO DAILY Sertraline (Zoloft), 50 MG PO HS [Magnesium], 250 MG PO DAILY Scheduled PRN Albuterol Sulfate (Proair Respiclick), 2 PUFFS INH QID PRN for SOB/Wheezing Diclofenac Sodium (Topical) (Diclofenac Sodium), 1 APPLN TOP QID PRN for Pain Fluticasone Propionate (Nasal) (Flonase Allergy Relief), 2 SPRAYS KATHY DAILY PRN for Allergy Symptoms Allergies Coded Allergies: Oxycodone (Verified Allergy, Mild, ITCHING, 10/22/16) Penicillins (Verified Allergy, Unknown, UNKNOWN RXN, OCCURED A CHILD, ) Physical Exam Vital Signs Date Time Temp Pulse Resp B/P Pulse Ox O2 Delivery O2 Flow Rate FiO2 10/22/16 20:06 93 16 114/64 97 Room Air 10/22/16 18:36 93 18 120/72 98 Room Air 10/22/16 14:58 36.7 107 18 135/72 96 Room Air Physical Exam GENERAL: alert, well appearing, well nourished, no distress, non-toxic EYE EXAM: normal conjunctiva, PERRL and EOM's grossly intact NECK: supple, no nuchal rigidity, no adenopathy, non-tender LUNGS: Clear to auscultation. Normal chest wall mechanics HEART: no murmurs, S1 normal and S2 normal ABDOMEN: abdomen soft, non-tender, normo-active bowel sounds, no masses, no rebound or guarding. BACK: Surgical wound c/d/i, no bandage. steri strips present, tender on palpation, no erythema, puss, bleeding SKIN: no rashes and no bruising UPPER EXTREMITIES: upper extremities are grossly normal. LOWER EXTREMITIES: No pitting edema. +pain at hip on flexion, internal / external rotation fernando, straight leg test negative NEURO EXAM: Normal sensorium, cranial nerves II-XII grossly intact, normal speech, no gross weakness of arms, no gross weakness of legs. Gross sensation in tact, reflexes intact fernando. 2+ patellar reflexes fernando, 1 + achilles tendon reflexes fernando Medical Decision & Procedures ER Provider Diagnostic Interpretation: MRI OF THE LUMBAR SPINE WITH AND WITHOUT CONTRAST CLINICAL HISTORY: Postoperative pain. Paresthesias. COMPARISON STUDY: Lumbar spine MRI August 03, 2016 and intraoperative fluoroscopic images October 14, 2016. TECHNIQUE: Utilizing a 1.5 Naya magnet and dedicated coil, multiplanar, multiecho imaging of the lumbar spine was performed before and after uneventful IV administration of 9 mL of Gadavist. FINDINGS: For purposes of numbering on this exam, the L5-S1 disc space is assigned to axial image 24 of 26. There are findings consistent with an interval laminectomy at the L3-L4 level with placement of bilateral pedicle screws at the L3, L4 and L5 levels. Note is made of a 2.7 x 2.2 x 2.9 cm laminectomy bed fluid collection at the L3 level with moderate mass effect upon the thecal sac. This is nonspecific in the early postoperative setting. There is also a subcutaneous operative bed fluid collection that measures 11.3 x 2.8 x 3.1 cm. Alignment of lumbar spine is anatomic. Vertebral body heights are maintained. There is no evidence for fracture. Conus terminates at the L1 level. Paravertebral soft tissues are unremarkable. Multilevel disc bulges are again noted. Laboratory Results 10/22/16 18:55 Red Blood Count 3.32, Mean Corpuscular Volume 92.8, Mean Corpuscular Hemoglobin 32.5, Mean Corpuscular Hemoglobin Concent 35.1, Mean Platelet Volume 8.8, Neutrophils (%) (Auto) 62.9, Lymphocytes (%) (Auto) 27.0, Monocytes (%) (Auto) 8.7, Eosinophils (%) (Auto) 0.9, Basophils (%) (Auto) 0.2, Neutrophils # (Auto) 5.81, Lymphocytes # (Auto) 2.49, Monocytes # (Auto) 0.80, Eosinophils # (Auto) 0.08, Basophils # (Auto) 0.02 10/22/16 18:55 Test 10/22/16 18:55 10/22/16 19:50 White Blood Count 9.23 K/uL (4.8-10.8) Red Blood Count 3.32 M/uL (4.2-5.4) Hemoglobin 10.8 g/dL (12.0-16.0) Hematocrit 30.8 % (37-47) Mean Corpuscular Volume 92.8 fL (80-100) Mean Corpuscular Hemoglobin 32.5 pg (25-34) Mean Corpuscular Hemoglobin Concent 35.1 g/dl (32-36) Platelet Count 490 K/uL (130-400) Mean Platelet Volume 8.8 fL (7.4-10.4) Neutrophils (%) (Auto) 62.9 % Lymphocytes (%) (Auto) 27.0 % Monocytes (%) (Auto) 8.7 % Eosinophils (%) (Auto) 0.9 % Basophils (%) (Auto) 0.2 % Neutrophils # (Auto) 5.81 K/uL (1.4-6.5) Lymphocytes # (Auto) 2.49 K/uL (1.2-3.4) Monocytes # (Auto) 0.80 K/uL (0.11-0.59) Eosinophils # (Auto) 0.08 K/uL (0-0.5) Basophils # (Auto) 0.02 K/uL (0-0.2) RDW Standard Deviation 45.6 fL (36.4-46.3) RDW Coefficient of Variation 13.4 % (11.5-14.5) Immature Granulocyte % (Auto) 0.3 % Immature Granulocyte # (Auto) 0.03 K/uL (0.00-0.02) Nucleated RBC Absolute Count (auto) 0.03 K/uL (0-0) Nucleated Red Blood Cells % 0.3 % Erythrocyte Sedimentation Rate 31 mm/hr (0-21) Anion Gap 8.0 mmol/L (3-11) Est Creatinine Clear Calc Drug Dose 84.9 ml/min Estimated GFR () 103.0 Estimated GFR (Non- 88.9 BUN/Creatinine Ratio 18.0 (10-20) Calcium Level 8.4 mg/dl (8.5-10.1) C-Reactive Protein 16.30 mg/dl (0-0.29) Urine Color YELLOW Urine Appearance CLEAR (CLEAR) Urine pH 8.0 (4.5-7.5) Urine Specific [place] 1.010 (1.000-1.030) Urine Protein NEG (NEG) Urine Glucose (UA) NEG (NEG) Urine Ketones NEG (NEG) Urine Occult Blood NEG (NEG) Urine Nitrite NEG (NEG) Urine Bilirubin NEG (NEG) Urine Urobilinogen NEG (NEG) Urine Leukocyte Esterase NEG (NEG) Urine WBC (Auto) 0 /hpf (0-5) Urine RBC (Auto) 0-4 /hpf (0-4) Urine Hyaline Casts (Auto) 0 /lpf (0-5) Urine Epithelial Cells (Auto) 5-10 /lpf (0-5) Urine Bacteria (Auto) NEG (NEG) Medications Administered Medications (Trade) Dose Ordered Sig/Jimena Route Start Time Stop Time Status Last Admin Dose Admin Sodium Chloride (Nss 1000ml) 1,000 ml @ 999 mls/hr Q1H1M STAT IV 10/22/16 16:20 10/22/16 17:20 DC 10/22/16 16:58 999 MLS/HR Morphine Sulfate (MoRPHine SULFATE INJ) 4 mg NOW STAT IV 10/22/16 16:38 10/22/16 16:39 DC 10/22/16 16:58 4 MG Dexamethasone Sodium Phosphate (Decadron Inj) 10 mg NOW ONCE IV 10/22/16 20:00 10/22/16 20:01 DC 10/22/16 19:58 10 MG Medical Decision 60 yo F s/p lumbar decompression 10/14/16 for Hx of lumbar stenosis p/w progressive back pain, anterior thigh paresthesia, fernando buttock pain, and urinary urgency Differential diagnoses includes but is not limited to post-surgical pain, lumbar radiculopathy, muscle strain, facture, cauda equina, mass, and disc herniation, spinal abbess, seroma, hematoma CBC: H/H 10.8/30.[address] normal BMP: K 3.1 CRP: 16.3 Urine: unremarkable MRI lumbar: 2.7 x 2.2 x 2.9 cm laminectomy bed fluid collection at the L3 level with moderate mass effect upon the thecal sac. - Given IV Fluids - IV Morphine 4 mg -Given 10 mg Decadron -Patient's back pain, paresthesia,possible episode urinary incontinence are concerned for cord compression. MRI confirms fluid collection at L3 consistent with seroma vs.although hematoma vs pseudomeningocele. could not be excluded - Discussed case with Giuseppe Pagan PA with Orthopedic Surgery who recommended admission and dose of Decadron 10 mg. with the plan of being seen by him tomorrow and if needed Dr. Gentile from [facility] Orthopedics could be consulted as [facility] Orthopedic surgeons will not be available for consult for the next few days. Discussed cased with Dr. Hamilton from the [facility] inpatient service who agreed to evaluate patient for inpatient service. -Hypokalemia addressed by inpatient team with 40 meq K PO Impression Primary Impression: Postoperative back pain Additional Impressions: Paresthesia of both lower extremities Bilateral buttock pain Departure Information Dispostion Admitted as an inpatient Condition GOOD Referrals Justin Chauhan M.D. (PCP) Patient Instructions My [facility] Resident Tracking Resident Involvement: Resident Care Provided Care Provided: Adult ED Problem Qualifiers
[2016-10-22] MEDS ORDERED: MISCCAP80 PO (17:40)
[2016-10-22] MEDS ORDERED: ASCO500T16 PO (17:40)
[2016-10-22] MEDS ORDERED: GADAVIST IV PRN (18:30)
--- NOTE | 2016-10-22 18:38 | DIAGNOSTIC IMAGING REPORT ---
MRI OF THE LUMBAR SPINE WITH AND WITHOUT CONTRAST CLINICAL HISTORY: Postoperative pain. Paresthesias. COMPARISON STUDY: Lumbar spine MRI August 03, 2016 and intraoperative fluoroscopic images October 14, 2016. TECHNIQUE: Utilizing a 1.5 Naya magnet and dedicated coil, multiplanar, multiecho imaging of the lumbar spine was performed before and after uneventful IV administration of 9 mL of Gadavist. FINDINGS: For purposes of numbering on this exam, the L5-S1 disc space is assigned to axial image 24 of 26. There are findings consistent with an interval laminectomy at the L3-L4 level with placement of bilateral pedicle screws at the L3, L4 and L5 levels. Note is made of a 2.7 x 2.2 x 2.9 cm laminectomy bed fluid collection at the L3 level with moderate mass effect upon the thecal sac. This is nonspecific in the early postoperative setting. There is also a subcutaneous operative bed fluid collection that measures 11.3 x 2.8 x 3.1 cm. Alignment of lumbar spine is anatomic. Vertebral body heights are maintained. There is no evidence for fracture. Conus terminates at the L1 level. Paravertebral soft tissues are unremarkable. Multilevel disc bulges are again noted. IMPRESSION: 1. Status post posterior decompression and L3-L5 bilateral pedicle screw fusion. 2. 2.7 x 2.2 x 2.9 cm laminectomy bed fluid collection at the L3 level with central canal narrowing with moderate mass effect upon the posterior aspect of the thecal sac. This is nonspecific in the early postoperative setting although statistically reflects a seroma. A pseudomeningocele could appear similar. A hematoma or abscess is considered less likely although could appear similar. 3. 11.3 x 2.8 x 3.1 cm subcutaneous operative bed fluid collection which is also nonspecific. Electronically signed by: Genaro August M.D. 10/22/2016 6:36 PM Dictated Date/Time: 10/22/2016 6:27 PM
[2016-10-22 19:05] LABS: BASO % 0.2 %; BASO ABS # 0.02 K/uL (0-0.2); COMPLETE YES; EOS % 0.9 %; HEMATOCRIT 30.8 % (37-47); IG% 0.3 %; LYMPH ABS # 2.49 K/uL (1.2-3.4); MEAN CELL VOLUME 92.8 fL (80-100); MEAN CORPUSCULAR HEMOGLOBIN 32.5 pg (25-34); MEAN CORPUSCULAR HGB CONC 35.1 g/dl (32-36); MEAN PLATELET VOLUME 8.8 fL (7.4-10.4); MONO % 8.7 %; NEUT % 62.9 %; PLATELET COUNT 490 K/uL (130-400); RED BLOOD COUNT 3.32 M/uL (4.2-5.4); WHITE BLOOD COUNT 9.23 K/uL (4.8-10.8)
[2016-10-22 19:23] LABS: CALCIUM 8.4 mg/dl (8.5-10.1); CREATININE 0.73 mg/dl (0.60-1.20); POTASSIUM 3.1 mmol/L (3.5-5.1)
[2016-10-22 19:25] LABS: C-REACTIVE PROTEIN 16.3 mg/dl (0-0.29)
[2016-10-22] MEDS ORDERED: DEXAMETHASONE SOD INJ 10 MG/ML VIAL IV ONE (20:00)
[2016-10-22 20:12] LABS: URINE APPEARANCE CLEAR (CLEAR); URINE BILIRUBIN NEG (NEG); URINE COLOR YELLOW; URINE NITRITE NEG (NEG); UROBILINOGEN NEG (NEG); ZZUR CULT IF INDIC CLEAN CATCH NO
[2016-10-22 20:22] LABS: MANUAL MICROSCOPIC REQUIRED? NO; REVIEW REQ? NO
[2016-10-22] MEDS ORDERED: POTASSIUM CHLORIDE 20 MEQ TABCR PO ONE (21:45)
[2016-10-22] MEDS ORDERED: MoRPHine SULFATE 2 MG/ML CARP IV PRN ×2 (21:45→22:45)
[2016-10-22] MEDS ORDERED: POTASSIUM CHLORIDE 10 MEQ TABCR ONE (21:56)
[2016-10-22 22:06] VITALS: BP 115/77; PULSE 79; TEMP 36.8; O2SAT 93; Ht 157.5 cm; Wt 91.0 kg
[2016-10-22 23:48] VITALS: BP 103/64; PULSE 85; TEMP 36.7; O2SAT 93
--- NOTE | 2016-10-23 01:56 | History and Physical ---
History & Physical Date & Time of Service: Oct 22, 2016 at 22:10 Chief Complaint: Recent Back Sx, Nerve Pain, Sent By Dr Rodriguez Primary Care Physician: Justin Chauhan M.D. History of Present Illness Source: patient, clinic records, hospital records 60 year old female with PMH hypothyroidism, anxiety, fibromyalgia, Lumbar stenosis s/p Surgical decompression by Dr. Rodriguez on 10/14 2016 who presents to the Emergency Room with complaints of lower back pain, bilateral pain in the buttocks, and anterior thigh burning sensation. Pt said that after the surgery , she was free of pain for about 1 day and then she started to have pain that was almost similar with the that she had before the surgery. Pt said that for the last 3 days her symptoms are getting worst. pain was 8/10. She said that she was doing well in rehab and discharged today. While in rehab, patient noticed worsening back pain , buttock pain bilaterally, and burning pain in her both thighs area. she thought it was probably because she pushed herself too much during therapy. She said that today while she was trying to walk to the bathroom to urinate, she could not get to the bathroom because of the pain. she said that she urinated on the floor. Pt said that walking and standing make the pain worst. She said that pain increases if she tries to hold her BM or her bladder. Subsequent episode of urination showed improvement in these symptoms. She said that while she was in rehab, she had a fever. She denies numbness, weakness, tingling, chest pain, palpitation, sob. Past Medical/Surgical History Medical Problems: (1) Chronic constipation Status: Chronic (2) Colitis Status: Resolved (3) Nausea Status: Resolved (4) Sciatic neuropathy Status: Chronic Surgical Problems: (1) Hx of splenectomy Status: Chronic Family History No pertinent family history Social History Smoking Status: Never Smoker Alcohol Use: none Drug Use: none Occupational Status: disabled Immunizations History of Influenza Vaccine: N/A History of Tetanus Vaccine?: Unknown Tetanus Immunization Date: Dec 24, 2008 History of Pneumococcal: Yes Pneumococcal Date: November 24, 2005 History of Hepatitis B Vaccine: No Multi-Drug Resistant Organisms History of MDRO: No Allergies Coded Allergies: Oxycodone (Verified Allergy, Mild, ITCHING, 10/22/16) Penicillins (Verified Allergy, Unknown, UNKNOWN RXN, OCCURED A CHILD, ) Home Medications Scheduled Ascorbic Acid (Ascorbic Acid), 500 MG PO DAILY Calcium Carbonate-Cholecalcife (Caltrate 600+D), 1 TAB PO BID Cholecalciferol (Vitamin D3), 1 TAB PO QAM Clonazepam (Klonopin), 1 MG PO HS Cyanocobalamin (Vitamin B12), 1 TAB PO QAM Cyclobenzaprine Hcl (Flexeril), 10 MG PO HS Flaxseed (Linseed) (Flax Seed Oil), 1 CAP PO QAM Hydrochlorothiazide (Hctz), 25 MG PO QAM Levothyroxine Sodium (Synthroid), 1 TAB PO DAILY Loratadine (Claritin), 10 MG PO DAILY Multivitamins/Minerals (Mvi With Minerals), 1 TAB PO QAM Probiotic Product (Probiotic), 1 CAP PO DAILY Sertraline (Zoloft), 50 MG PO HS [Magnesium], 250 MG PO DAILY Scheduled PRN Albuterol Sulfate (Proair Respiclick), 2 PUFFS INH QID PRN for SOB/Wheezing Diclofenac Sodium (Topical) (Diclofenac Sodium), 1 APPLN TOP QID PRN for Pain Fluticasone Propionate (Nasal) (Flonase Allergy Relief), 2 SPRAYS KATHY DAILY PRN for Allergy Symptoms Review of Systems Constitutional: No sweats, No weakness Eyes: No eye pain, No worsening of vision ENT: No hearing loss, No nasal symptoms, No unusual epistaxis Respiratory: No cough, No sputum Cardiovascular: No chest pain, No edema, No orthopnea Abdomen: No nausea, No pain, No vomiting Musculoskeletal: + problem reported (back pain), No calf pain, No swelling Genitourinary - Female: No hematuria, No urinary frequency, No urinary incontinence, No urinary retention, No urinary urgency Neurologic: No memory loss, No weakness Psychiatric: No anxiety, No substance abuse Endocrine: No excessive thirst Hematologic / Lymphatic: No night sweats Integumentary: No itch, No rash Physical Exam Vital Signs Date Time Temp Pulse Resp B/P Pulse Ox O2 Delivery O2 Flow Rate FiO2 10/22/16 21:53 89 15 109/63 93 Room Air 10/22/16 20:06 93 16 114/64 97 Room Air 10/22/16 18:36 93 18 120/72 98 Room Air 10/22/16 14:58 36.7 107 18 135/72 96 Room Air General Appearance: WD/WN, no apparent distress Head: normocephalic, atraumatic Eyes: normal inspection, PERRL, EOMI ENT: normal ENT inspection, hearing grossly normal Neck: supple, no JVD Respiratory/Chest: lungs clear, no respiratory distress, no accessory muscle use Cardiovascular: regular rate, rhythm, no edema, no gallop, no JVD, no murmur Abdomen/GI: normal bowel sounds, non tender, soft Back: no CVA tenderness, + pertinent finding (surgical incision has no drainage , no erythema, mild tenderness) Extremities/Musculoskelatal: normal inspection, no calf tenderness, no pedal edema Neurologic/Psych: no motor/sensory deficits, alert, normal mood/affect, normal reflexes, oriented x 3 Skin: normal color, warm/dry Diagnostics Laboratory Results Results Past 24 Hours Test 10/22/16 18:55 10/22/16 19:50 Range/Units White Blood Count 9.23 4.8-10.8 K/uL Red Blood Count 3.32 4.2-5.4 M/uL Hemoglobin 10.8 12.0-16.0 g/dL Hematocrit 30.8 37-47 % Mean Corpuscular Volume 92.8 80-100 fL Mean Corpuscular Hemoglobin 32.5 25-34 pg Mean Corpuscular Hemoglobin Concent 35.1 32-36 g/dl Platelet Count 490 130-400 K/uL Mean Platelet Volume 8.8 7.4-10.4 fL Neutrophils (%) (Auto) 62.9 % Lymphocytes (%) (Auto) 27.0 % Monocytes (%) (Auto) 8.7 % Eosinophils (%) (Auto) 0.9 % Basophils (%) (Auto) 0.2 % Neutrophils # (Auto) 5.81 1.4-6.5 K/uL Lymphocytes # (Auto) 2.49 1.2-3.4 K/uL Monocytes # (Auto) 0.80 0.11-0.59 K/uL Eosinophils # (Auto) 0.08 0-0.5 K/uL Basophils # (Auto) 0.02 0-0.2 K/uL RDW Standard Deviation 45.6 36.4-46.3 fL RDW Coefficient of Variation 13.4 11.5-14.5 % Immature Granulocyte % (Auto) 0.3 % Immature Granulocyte # (Auto) 0.03 0.00-0.02 K/uL Nucleated RBC Absolute Count (auto) 0.03 0-0 K/uL Nucleated Red Blood Cells % 0.3 % Erythrocyte Sedimentation Rate 31 0-21 mm/hr Sodium Level 137 136-145 mmol/L Potassium Level 3.1 3.5-5.1 mmol/L Chloride Level 100 98-107 mmol/L Carbon Dioxide Level 29 21-32 mmol/L Anion Gap 8.0 3-11 mmol/L Blood Urea Nitrogen 13 7-18 mg/dl Creatinine 0.73 0.60-1.20 mg/dl Est Creatinine Clear Calc Drug Dose 84.9 ml/min Estimated GFR () 103.0 Estimated GFR (Non- 88.9 BUN/Creatinine Ratio 18.0 10-20 Random Glucose 93 70-99 mg/dl Calcium Level 8.4 8.5-10.1 mg/dl C-Reactive Protein 16.30 0-0.29 mg/dl Urine Color YELLOW Urine Appearance CLEAR CLEAR Urine pH 8.0 4.5-7.5 Urine Specific [place] 1.010 1.000-1.030 Urine Protein NEG NEG Urine Glucose (UA) NEG NEG Urine Ketones NEG NEG Urine Occult Blood NEG NEG Urine Nitrite NEG NEG Urine Bilirubin NEG NEG Urine Urobilinogen NEG NEG Urine Leukocyte Esterase NEG NEG Urine WBC (Auto) 0 0-5 /hpf Urine RBC (Auto) 0-4 0-4 /hpf Urine Hyaline Casts (Auto) 0 0-5 /lpf Urine Epithelial Cells (Auto) 5-10 0-5 /lpf Urine Bacteria (Auto) NEG NEG Diagnostic Radiology MRI OF THE LUMBAR SPINE WITH AND WITHOUT CONTRAST CLINICAL HISTORY: Postoperative pain. Paresthesias. COMPARISON STUDY: Lumbar spine MRI August 03, 2016 and intraoperative fluoroscopic images October 14, 2016. TECHNIQUE: Utilizing a 1.5 Naya magnet and dedicated coil, multiplanar, multiecho imaging of the lumbar spine was performed before and after uneventful IV administration of 9 mL of Gadavist. FINDINGS: For purposes of numbering on this exam, the L5-S1 disc space is assigned to axial image 24 of 26. There are findings consistent with an interval laminectomy at the L3-L4 level with placement of bilateral pedicle screws at the L3, L4 and L5 levels. Note is made of a 2.7 x 2.2 x 2.9 cm laminectomy bed fluid collection at the L3 level with moderate mass effect upon the thecal sac. This is nonspecific in the early postoperative setting. There is also a subcutaneous operative bed fluid collection that measures 11.3 x 2.8 x 3.1 cm. Alignment of lumbar spine is anatomic. Vertebral body heights are maintained. There is no evidence for fracture. Conus terminates at the L1 level. Paravertebral soft tissues are unremarkable. Multilevel disc bulges are again noted. IMPRESSION: 1. Status post posterior decompression and L3-L5 bilateral pedicle screw fusion. 2. 2.7 x 2.2 x 2.9 cm laminectomy bed fluid collection at the L3 level with central canal narrowing with moderate mass effect upon the posterior aspect of the thecal sac. This is nonspecific in the early postoperative setting although statistically reflects a seroma. A pseudomeningocele could appear similar. A hematoma or abscess is considered less likely although could appear similar. 3. 11.3 x 2.8 x 3.1 cm subcutaneous operative bed fluid collection which is also nonspecific. Electronically signed by: Genaro August M.D. 10/22/2016 6:36 PM Dictated Date/Time: 10/22/2016 6:27 PM Impression Assessment and Plan Postoperative Back Pain associated with burning thighs pain Lumbar stenosis s/p Surgical decompression by Dr. Rodriguez on 10/14 MRI of back showed 2.7 x 2.2 x 2.9 cm laminectomy bed fluid collection at the L3 level with central canal narrowing with moderate mass effect upon the posterior aspect of the thecal sac. will consult orthopedic elevated ESR and C-reactive will make NPO after minight continue morphine for pain PT/OT eval Subcutaneous fluid collection Need to r/o any abscess Afebrile, no elevated WBC ESR and C-reactive elevated will check procalcitonin level will hold for abx for now Might need surgical consult vital stable Hypothyroidism Continue levothyroxine check TSH Hypokalemia K replaced monitor electrolytes DVT px on heparin subq CODE Status Full code Resuscitation Status FULL RESUSCITATION VTE Prophylaxis VTE Risk Assessment Done? Y/N: Yes Risk Level: Moderate Given or contraindicated: Unfractionated heparin SQ
[2016-10-23] MEDS ORDERED: ALBUTEROL HFA 8 GM INHALER INH PRN (02:00)
[2016-10-23] MEDS: LEVOTHYROXINE 25 MCG TAB PO SCH (05:44)
[2016-10-23 07:18] LABS: HEMATOCRIT 32.8 % (37-47); MEAN CORPUSCULAR HEMOGLOBIN 32.4 pg (25-34); MEAN CORPUSCULAR HGB CONC 34.5 g/dl (32-36); MEAN PLATELET VOLUME 9.2 fL (7.4-10.4); PLATELET COUNT 579 K/uL (130-400); RED BLOOD COUNT 3.49 M/uL (4.2-5.4)
[2016-10-23 07:35] VITALS: BP 95/56; PULSE 77; TEMP 36.7; O2SAT 97
[2016-10-23 07:38] LABS: PARTIAL THROMBOPLASTIN RATIO 1.1
[2016-10-23 08:16] LABS: BUN/CREATININE RATIO 15.7 (10-20); CALCIUM 8.9 mg/dl (8.5-10.1); CREATININE 0.78 mg/dl (0.60-1.20); POTASSIUM 3.9 mmol/L (3.5-5.1)
[2016-10-23] MEDS: HEPARIN SOD 5000 UNIT/0.5 ML CARP SQ SCH ×3 (09:00→21:32)
[2016-10-23] MEDS: CEROVITE ADV FORMULA TAB PO SCH (09:04)
[2016-10-23] MEDS: CYANOCOBALAMIN 500 MCG TAB (VIT B-12) PO SCH (09:04)
[2016-10-23] MEDS: HYDROCHLOROTHIAZIDE 25 MG TAB PO SCH (09:04)
[2016-10-23] MEDS: CALCIUM 600MG + VIT D 400 IU TAB PO SCH ×2 (09:05→16:58)
[2016-10-23] MEDS: LORATADINE 10 MG TAB PO SCH (09:05)
--- NOTE | 2016-10-23 14:03 | PROGRESS NOTE ---
DATE: 10/23/2016 DATE: 10/23/2016. SUBJECTIVE: Ms. Solis was admitted last night through the Emergency Room. She is postop day 12 at this point status post lumbar decompression and fusion. She was experiencing increasing pain at home and had an episode of urinary incontinence as she could not make it to the bathroom in time. With increasing pain she thought she should go to the Emergency Room and be evaluated. She was evaluated by the Emergency Room attending and was noted to be neurologically intact. An MRI however was obtained due to urinary issues and a small seroma was noted. We were contacted by the ER attending and thought it would be reasonable to admit her to medicine for pain control and we need to evaluate her in the morning as again neurologically she was intact. Today she states the pain is better. She has not had any other urinary symptoms to date. She has not yet been out of bed her however. She still has some burning pain in the anterior thighs, nothing going down below the knees. No other numbness or tingling. PHYSICAL EXAMINATION: She is afebrile. Vital signs are stable. She has voided 900 mL today so far. Her white blood cell count was 9.7, hematocrit 32.8, sedimentation rate was 31 and C-reactive protein was 16.3 yesterday. She is alert, oriented. She has full range of motion of the hips and knees. She has full strength in both lower extremities. Sensation is intact to light touch. Proprioception is intact. Gait was not observed. Incision is benign. She is mildly tender about the incision itself. ASSESSMENT: Patient is stable with a modest sized seroma at the L3-4 segment. PLAN: At this point, will continue observation. We will keep her on her Decadron, continue pain control measures. Let her go back to a full diet. Will get a postvoid residual to make sure she is not retaining urine however this may be due to narcotics if it is present. I discussed in detail with the patient and she agrees with this plan. I have also reviewed the plan with Dr. Goznalez and he believes that this is reasonable swell. If she started declining neurologically, has increasing pain and symptoms some consideration be given to decompressing the seroma but at this point I believe that her symptoms are likely to resolve on their own given a bit more time and some steroids.
[2016-10-23 15:07] VITALS: BP 104/60; PULSE 93; TEMP 36.7; O2SAT 95
--- NOTE | 2016-10-23 16:49 | Progress Note ---
Internal Med Progress Note Date of Service: Oct 23, 2016. Provider Documentation: SUBJECTIVE: sitting on the bed comfortably back pain is much better now afebrile no nausea OBJECTIVE: Vital Signs-as noted below Exam: General-alert and awake and oriented ENT-normal hearing Neck-no neck masses Lungs-cta b/l no wheezing or crackles Heart-s1 and s2 heard regular rate and rhythm no murmurs Abdomen-soft bowel sounds present non tender no distension Musculoskeletal recent back surgery incision site no drainage or erythema Extremities- no erythema no edema Neuro-alert and awake moves extremities Lab data as noted below. ASSESSMENT & PLAN: Postoperative Back Pain associated with burning thighs pain Lumbar stenosis s/p Surgical decompression by Dr. Rodriguez on 10/14 MRI of back showed 2.7 x 2.2 x 2.9 cm laminectomy bed fluid collection at the L3 level with central canal narrowing with moderate mass effect upon the posterior aspect of the thecal sac. mostly seroma conservative management pt/ot pain control.improving. Hypothyroidism On levothyroxine Hypokalemia K replaced DVT px on heparin subq CODE Status Full code DISPOSITION to be determined Vital Signs: Date Time Temp Pulse Resp B/P Pulse Ox O2 Delivery O2 Flow Rate FiO2 10/23/16 15:07 36.7 93 16 104/60 95 Room Air 10/23/16 08:00 Room Air 10/23/16 07:35 36.7 77 15 95/56 97 Room Air 10/22/16 23:50 Room Air 10/22/16 23:48 36.7 85 16 103/64 93 Room Air 10/22/16 22:06 36.8 79 18 115/77 93 Room Air 10/22/16 21:53 89 15 109/63 93 Room Air 10/22/16 20:06 93 16 114/64 97 Room Air 10/22/16 18:36 93 18 120/72 98 Room Air Lab Results: Results Past 24 Hours Test 10/22/16 18:55 10/22/16 19:50 10/23/16 06:53 Range/Units White Blood Count 9.23 9.70 4.8-10.8 K/uL Red Blood Count 3.32 3.49 4.2-5.4 M/uL Hemoglobin 10.8 11.3 12.0-16.0 g/dL Hematocrit 30.8 32.8 37-47 % Mean Corpuscular Volume 92.8 94.0 80-100 fL Mean Corpuscular Hemoglobin 32.5 32.4 25-34 pg Mean Corpuscular Hemoglobin Concent 35.1 34.5 32-36 g/dl Platelet Count 490 579 130-400 K/uL Mean Platelet Volume 8.8 9.2 7.4-10.4 fL Neutrophils (%) (Auto) 62.9 % Lymphocytes (%) (Auto) 27.0 % Monocytes (%) (Auto) 8.7 % Eosinophils (%) (Auto) 0.9 % Basophils (%) (Auto) 0.2 % Neutrophils # (Auto) 5.81 1.4-6.5 K/uL Lymphocytes # (Auto) 2.49 1.2-3.4 K/uL Monocytes # (Auto) 0.80 0.11-0.59 K/uL Eosinophils # (Auto) 0.08 0-0.5 K/uL Basophils # (Auto) 0.02 0-0.2 K/uL RDW Standard Deviation 45.6 46.5 36.4-46.3 fL RDW Coefficient of Variation 13.4 13.5 11.5-14.5 % Immature Granulocyte % (Auto) 0.3 % Immature Granulocyte # (Auto) 0.03 0.00-0.02 K/uL Nucleated RBC Absolute Count (auto) 0.03 0-0 K/uL Nucleated Red Blood Cells % 0.3 % Erythrocyte Sedimentation Rate 31 0-21 mm/hr Sodium Level 137 139 136-145 mmol/L Potassium Level 3.1 3.9 3.5-5.1 mmol/L Chloride Level 100 104 98-107 mmol/L Carbon Dioxide Level 29 28 21-32 mmol/L Anion Gap 8.0 7.0 3-11 mmol/L Blood Urea Nitrogen 13 12 7-18 mg/dl Creatinine 0.73 0.78 0.60-1.20 mg/dl Est Creatinine Clear Calc Drug Dose 84.9 79.5 ml/min Estimated GFR () 103.0 95.1 Estimated GFR (Non- 88.9 82.1 BUN/Creatinine Ratio 18.0 15.7 10-20 Random Glucose 93 144 70-99 mg/dl Calcium Level 8.4 8.9 8.5-10.1 mg/dl C-Reactive Protein 16.30 0-0.29 mg/dl Urine Color YELLOW Urine Appearance CLEAR CLEAR Urine pH 8.0 4.5-7.5 Urine Specific [place] 1.010 1.000-1.030 Urine Protein NEG NEG Urine Glucose (UA) NEG NEG Urine Ketones NEG NEG Urine Occult Blood NEG NEG Urine Nitrite NEG NEG Urine Bilirubin NEG NEG Urine Urobilinogen NEG NEG Urine Leukocyte Esterase NEG NEG Urine WBC (Auto) 0 0-5 /hpf Urine RBC (Auto) 0-4 0-4 /hpf Urine Hyaline Casts (Auto) 0 0-5 /lpf Urine Epithelial Cells (Auto) 5-10 0-5 /lpf Urine Bacteria (Auto) NEG NEG Activated Partial Thromboplast Time 27.6 21.0-31.0 SECONDS Partial Thromboplastin Ratio 1.1 Procalcitonin 0.05 0-0.5 ng/mL Hepatitis C Antibody Screen NEG NEG
[2016-10-23] MEDS: CLONAZEPAM 1 MG TAB PO SCH (21:03)
[2016-10-23] MEDS: SERTRALINE HCL 50 MG TAB PO SCH (21:04)
[2016-10-23] MEDS: CYCLOBENZAPRINE HCL 10 MG TAB PO SCH (21:04)
[2016-10-23] MEDS ORDERED: HYDROCODONE/ACETAMI 10/325 TAB PO PRN (21:15)
[2016-10-23 23:03] VITALS: BP 114/68; PULSE 91; TEMP 36.9; O2SAT 93
[2016-10-24] MEDS: HYDROCODONE/ACETAMI 10/325 TAB PO PRN ×2 (06:05→16:44)
[2016-10-24] MEDS: LEVOTHYROXINE 25 MCG TAB PO SCH (06:06)
[2016-10-24] MEDS: HEPARIN SOD 5000 UNIT/0.5 ML CARP SQ SCH ×3 (06:09→22:17)
[2016-10-24 07:20] VITALS: BP 113/75; PULSE 79; TEMP 36.6; O2SAT 98
[2016-10-24] MEDS: CALCIUM 600MG + VIT D 400 IU TAB PO SCH ×2 (11:50→18:31)
[2016-10-24] MEDS: LORATADINE 10 MG TAB PO SCH (11:50)
[2016-10-24] MEDS: CEROVITE ADV FORMULA TAB PO SCH (11:51)
[2016-10-24] MEDS: HYDROCHLOROTHIAZIDE 25 MG TAB PO SCH (11:51)
[2016-10-24] MEDS: CYANOCOBALAMIN 500 MCG TAB (VIT B-12) PO SCH (11:51)
[2016-10-24 15:20] VITALS: BP 109/71; PULSE 79; TEMP 36.6; O2SAT 95
--- NOTE | 2016-10-24 17:13 | Progress Note ---
Internal Med Progress Note Date of Service: Oct 24, 2016. Provider Documentation: SUBJECTIVE: resting on the bed comfortably back pain is better no nausea no complaints OBJECTIVE: Vital Signs-as noted below Exam: General-alert and awake and oriented ENT-normal hearing Neck-no neck masses Lungs-cta b/l no wheezing or crackles Heart-s1 and s2 heard regular rate and rhythm no murmurs Abdomen-soft bowel sounds present non tender no distension Musculoskeletal recent back surgery incision site no drainage or erythema Extremities- no erythema no edema Neuro-alert and awake moves extremities Lab data as noted below. ASSESSMENT & PLAN: Postoperative Back Pain associated with burning thighs pain Lumbar stenosis s/p Surgical decompression by Dr. Rodriguez on 10/14 201 MRI of back showed 2.7 x 2.2 x 2.9 cm laminectomy bed fluid collection at the L3 level with central canal narrowing with moderate mass effect upon the posterior aspect of the thecal sac. mostly seroma conservative management pt/ot pain control.improving. if stable plan to d/c in am Hypothyroidism On levothyroxine Hypokalemia K replaced DVT px on heparin subq CODE Status Full code DISPOSITION possible d/c in am Vital Signs: Date Time Temp Pulse Resp B/P Pulse Ox O2 Delivery O2 Flow Rate FiO2 10/24/16 15:20 36.6 79 18 109/71 95 Room Air 10/24/16 07:45 Room Air 10/24/16 07:20 36.6 79 16 113/75 98 Room Air 10/23/16 23:35 Room Air 10/23/16 23:03 36.9 91 14 114/68 93 Room Air
[2016-10-24] MEDS: CYCLOBENZAPRINE HCL 10 MG TAB PO SCH (20:40)
[2016-10-24] MEDS: SERTRALINE HCL 50 MG TAB PO SCH (20:40)
[2016-10-24] MEDS: CLONAZEPAM 1 MG TAB PO SCH (20:41)
[2016-10-24 23:25] VITALS: BP 107/57; PULSE 83; TEMP 36.7; O2SAT 99
[2016-10-25] MEDS: HYDROCODONE/ACETAMI 10/325 TAB PO PRN (00:39)
[2016-10-25] MEDS: LEVOTHYROXINE 25 MCG TAB PO SCH (05:56)
[2016-10-25] MEDS: HEPARIN SOD 5000 UNIT/0.5 ML CARP SQ SCH (05:59)
[2016-10-25 06:47] VITALS: BP 107/67; PULSE 80; TEMP 36.8; O2SAT 97
[2016-10-25] MEDS: LORATADINE 10 MG TAB PO SCH (09:00)
[2016-10-25] MEDS: CALCIUM 600MG + VIT D 400 IU TAB PO SCH (09:08)
[2016-10-25] MEDS: CEROVITE ADV FORMULA TAB PO SCH (09:09)
[2016-10-25] MEDS: HYDROCHLOROTHIAZIDE 25 MG TAB PO SCH (09:09)
[2016-10-25] MEDS: CYANOCOBALAMIN 500 MCG TAB (VIT B-12) PO SCH (09:09)
--- NOTE | 2016-10-25 09:33 | Discharge Instructions ---
Discharge Instructions Date of Service Oct 25, 2016. Admission Reason for Admission: Bilateral Buttock Pain, Postoperative Back Pain Discharge Discharge Diagnosis / Problem: Intractable pain Discharge Goals Goal(s): Decrease discomfort Activity Recommendations Activity Limitations: as noted below Lifting Limitations: no more than 5 pounds Exercise/Sports Limitations: as tolerated Shower/Bathe: no limitations . Instructions / Follow-Up Instructions / Follow-Up ACTIVITY RECOMMENDATIONS: SELF CARE INSTRUCTIONS AFTER THORACIC/LUMBAR FUSIONS 1. You may walk to your tolerance. It is good exercise for your legs and back. Expect some back and intermittent leg aches and pains. 2. You may perform "counter-top" level activities (make a sandwich, tommy with a project, etc.). 3. No bending or lifting of more than 10 pounds or back twisting of any nature (roll like a log when turning in bed). 4. You may ride in a car for 20-30 minutes at a time. No driving until after your first visit with your doctor. 5. Frequent changes of position and restricting sitting to 30 minutes at a time will help limit the amount of back spasms and stiffness you may experience. 6. You may discontinue the use of ambulatory aids (cane, crutches, etc.) once your strength and confidence allow. 7. You may cylinder checker the shower and let water strike your incision when you arrive home at least once daily. Do not take a tub bath, sit in a hot tub or go into a swimming pool until after your first recheck in the office. SPECIAL CARE INSTRUCTIONS: VERY IMPORTANT TO READ AND REVIEW A. Your surgical incision has been closed with a cosmetic suture under the skin that will dissolve in about 6 weeks. In 14 days, you can use a pair of clean scissors and cut the suture that is left outside of the skin at the ends of your incision. 1. The small skin tapes can be removed 7 days after surgery if they have not fallen off by that point. 2. You may keep the wound open to air as much as possible to promote healing after post-op day number 5 unless told otherwise by your doctor. 3. If you think the wound looks like it is becoming infected (redness or worsening drainage) and/or you are experiencing fever, chill or worsening back pain and muscle spasms, contact the office so that we may evaluate you as soon as possible. B. Complications are uncommon, but please contact us if you have any signs or symptoms of: 1. wound infection (fever higher than 102.5 degrees F, redness, separation of wound, drainage, or increasing pain from the incision) 2. blood clots in legs (pain, swelling, redness and warmth in legs) 3. urinary tract infection (fever higher than 102.5 degrees F, burning upon urination or increased frequency of urination) 4. nerve problems (inability to walk on your toes or heels, numbness, loss of bowel or bladder control) 5. any other symptoms that concern you C. Please call the office at if you have any concerns or questions about your operation or recovery. D. No smoking! Smoking drastically decreases the chance of a solid fusion. E. Do not take any anti-inflammatory medications (Indocin, Advil, Motrin, Aspirin, Naprosyn, etc.) as these may inhibit the chance of a solid fusion. Tylenol is okay to take for pain. MANAGING PAIN AFTER SPINAL SURGERY 1. Narcotic medication is intended for short-term use and will be provided for surgical pain. Surgical pain usually lasts for a period of 4-6 weeks. Narcotic medication includes Percocet, Vicodin, Darvocet, Tylenol #3 or Lortab. 2. Longer-term pain is more appropriately treated with non-narcotic medication such as Tylenol ES. 3. Muscle spasm is not appropriately treated with narcotics. Muscle relaxers such as Soma, Flexeril or Skelaxin can be used along with Tylenol ES. 4. Remember that we all live with some "aches and pains". This is not unusual or uncommon after an injury or as we get older. a. Back pain is expected and may include muscle spasms for 4 to 6 weeks after surgery. The pain should gradually improve. If the pain worsens for no apparent reason, please contact the office. b. Intermittent leg pain may also be experienced and should not be concerned about unless it worsens for no apparent reason. If so, please contact the office. 5. We will provide appropriate medication within the normal guidelines of their prescribed use. We will also be very cautious and aware of potential abuse and extended duration of patients' medication needs. a. Pain medications are for your comfort and to assist with sleep and rest so that the tissue can heal. They are not provided in order to return to normal activity and should not be used through the day. To do so or worsening pain at night can result from ongoing tissue damage and development of tolerance to the prescribed medicine. 6. Please allow 2-3 days to process refills. Prescriptions will not be mailed but must be picked up at the office. FOLLOW UP VISIT: Keep your scheduled follow-up appointment. Any questions, please call the office at . Current Hospital Diet Patient's current hospital diet: AHA Diet (Heart Healthy) Discharge Diet Recommended Diet: Regular Diet Pending Studies Studies pending at discharge: no Medical Emergencies . Who to Call and When: Medical Emergencies: If at any time you feel your situation is an emergency, please call 911 immediately. . Non-Emergent Contact Non-Emergency issues call your: Surgeon Call Non-Emergent contact if: temperature is above 101.5, your pain is not controlled . "Provider Documentation" section prepared by Jorje Moreno. VTE Core Measure Inpt VTE Proph given/why not?: Unfractionated heparin SATISH, T.E.DGianna Garcia
[2016-10-25 11:15] VITALS: BP 107/67; PULSE 80; TEMP 36.8; O2SAT 97
--- NOTE | 2016-10-25 17:38 | Progress Note ---
Internal Med Progress Note Date of Service: Oct 25, 2016. Provider Documentation: SUBJECTIVE: back pain much better afebrile no sob no chest pain awaiting to be discharged OBJECTIVE: Vital Signs-as noted below Exam: General-alert and awake and oriented ENT-normal hearing Neck-no neck masses Lungs-cta b/l no wheezing or crackles Heart-s1 and s2 heard regular rate and rhythm no murmurs Abdomen-soft bowel sounds present non tender no distension Musculoskeletal recent back surgery incision site no drainage or erythema Extremities- no erythema no edema Neuro-alert and awake moves extremities Lab data as noted below. ASSESSMENT & PLAN: Postoperative Back Pain associated with burning thighs pain Lumbar stenosis s/p Surgical decompression by Dr. Rodriguez on 10/14 MRI of back showed 2.7 x 2.2 x 2.9 cm laminectomy bed fluid collection at the L3 level with central canal narrowing with moderate mass effect upon the posterior aspect of the thecal sac. mostly seroma conservative management pt/ot pain control.improved. discharged home Hypothyroidism On levothyroxine Hypokalemia K replaced Discharged Vital Signs: Date Time Temp Pulse Resp B/P Pulse Ox O2 Delivery O2 Flow Rate FiO2 10/25/16 11:15 36.8 80 16 97 Room Air 10/25/16 09:03 Room Air 10/25/16 06:47 36.8 80 16 107/67 97 Room Air 10/24/16 23:25 36.7 83 18 107/57 99 Room Air 10/24/16 19:05 Room Air
--- NOTE | 2016-10-25 17:40 | Discharge Summary ---
Discharge Summary Date of Service Oct 25, 2016. Discharge Summary Admission Date: Oct 22, 2016 at 21:39 Discharge Date: Oct 25, 2016 Discharge Disposition: Home Principal Diagnosis: BACK PAIN Secondary Diagnoses/Problems: (1) Chronic constipation Status: Chronic (2) Colitis Status: Resolved (3) Nausea Status: Resolved (4) Sciatic neuropathy Status: Chronic Procedures: MRI BACK: 1. Status post posterior decompression and L3-L5 bilateral pedicle screw fusion. 2. 2.7 x 2.2 x 2.9 cm laminectomy bed fluid collection at the L3 level with central canal narrowing with moderate mass effect upon the posterior aspect of the thecal sac. This is nonspecific in the early postoperative setting although statistically reflects a seroma. A pseudomeningocele could appear similar. A hematoma or abscess is considered less likely although could appear similar. 3. 11.3 x 2.8 x 3.1 cm subcutaneous operative bed fluid collection which is also nonspecific. Consultations: ORTHOPEDICS Medication Reconciliation Continued Medications: Albuterol Sulfate (Proair Respiclick) 108 Mcg/Act Aer 2 PUFFS INH QID PRN for SOB/Wheezing Calcium Carbonate-Cholecalcife (Caltrate 600+D) 1 Tab Tab 1 TAB PO BID Cholecalciferol (Vitamin D3) 1,000 Unit Tab 1 TAB PO QAM for 90 Days, #90 TAB 3 Refills Clonazepam (Klonopin) 1 Mg Tab 1 MG PO HS, TAB Cyanocobalamin (Vitamin B12) 1,000 Mcg Tab 1 TAB PO QAM Cyclobenzaprine Hcl (Flexeril) 10 Mg Tab 10 MG PO HS, TAB Diclofenac Sodium (Topical) (Diclofenac Sodium) 1 % Gel 1 APPLN TOP QID PRN for Pain Flaxseed (Linseed) (Flax Seed Oil) 1,000 Mg Cap 1 CAP PO QAM Fluticasone Propionate (Nasal) (Flonase Allergy Relief) 50 Mcg/Act Spr 2 SPRAYS KATHY DAILY PRN for Allergy Symptoms Hydrochlorothiazide (Hctz) 25 Mg Tab 25 MG PO QAM, TAB Levothyroxine Sodium (Synthroid) 25 Mcg Tab 1 TAB PO DAILY, TAB Loratadine (Claritin) 10 Mg Tab 10 MG PO DAILY, TAB Multivitamins/Minerals (Mvi With Minerals) Tab 1 TAB PO QAM, TAB Probiotic Product (Probiotic) 1 Cap Cap 1 CAP PO DAILY Sertraline (Zoloft) 50 Mg Tab 50 MG PO HS, TAB Admission Information HPI (per Admitting provider): 60 year old female with PMH hypothyroidism, anxiety, fibromyalgia, Lumbar stenosis s/p Surgical decompression by Dr. Rodriguez on 10/14 2016 who presents to the Emergency Room with complaints of lower back pain, bilateral pain in the buttocks, and anterior thigh burning sensation. Pt said that after the surgery , she was free of pain for about 1 day and then she started to have pain that was almost similar with the that she had before the surgery. Pt said that for the last 3 days her symptoms are getting worst. pain was 8/10. She said that she was doing well in rehab and discharged today. While in rehab, patient noticed worsening back pain , buttock pain bilaterally, and burning pain in her both thighs area. she thought it was probably because she pushed herself too much during therapy. She said that today while she was trying to walk to the bathroom to urinate, she could not get to the bathroom because of the pain. she said that she urinated on the floor. Pt said that walking and standing make the pain worst. She said that pain increases if she tries to hold her BM or her bladder. Subsequent episode of urination showed improvement in these symptoms. She said that while she was in rehab, she had a fever. She denies numbness, weakness, tingling, chest pain, palpitation, sob. Physical Exam (per Admitting): General Appearance: WD/WN, no apparent distress Head: normocephalic, atraumatic Eyes: normal inspection, PERRL, EOMI ENT: normal ENT inspection, hearing grossly normal Neck: supple, no JVD Respiratory/Chest: lungs clear, no respiratory distress, no accessory muscle use Cardiovascular: regular rate, rhythm, no edema, no gallop, no JVD, no murmur Abdomen/GI: normal bowel sounds, non tender, soft Back: no CVA tenderness, + pertinent finding (surgical incision has no drainage, no erythema, mild tenderness) Extremities/Musculoskelatal: normal inspection, no calf tenderness, no pedal edema Neurologic/Psych: no motor/sensory deficits, alert, normal mood/affect, normal reflexes, oriented x 3 Skin: normal color, warm/dry Hospital Course Postoperative Back Pain associated with burning thighs pain Lumbar stenosis s/p Surgical decompression by Dr. Rodriguez on 10/14 MRI of back showed 2.7 x 2.2 x 2.9 cm laminectomy bed fluid collection at the L3 level with central canal narrowing with moderate mass effect upon the posterior aspect of the thecal sac. mostly seroma conservative management pt/ot pain control.improved. discharged home Hypothyroidism On levothyroxine Hypokalemia K replaced Discharged Total time spent on discharge = 35MINUTES This includes examination of the patient, discharge planning, medication reconciliation, and communication with other providers. Discharge Instructions Discharge Instructions Date of Service Oct 25, 2016. Admission Reason for Admission: Bilateral Buttock Pain, Postoperative Back Pain Discharge Discharge Diagnosis / Problem: Intractable pain Discharge Goals Goal(s): Decrease discomfort Activity Recommendations Activity Limitations: as noted below Lifting Limitations: no more than 5 pounds Exercise/Sports Limitations: as tolerated Shower/Bathe: no limitations . Instructions / Follow-Up Instructions / Follow-Up ACTIVITY RECOMMENDATIONS: SELF CARE INSTRUCTIONS AFTER THORACIC/LUMBAR FUSIONS 1. You may walk to your tolerance. It is good exercise for your legs and back. Expect some back and intermittent leg aches and pains. 2. You may perform "counter-top" level activities (make a sandwich, tommy with a project, etc.). 3. No bending or lifting of more than 10 pounds or back twisting of any nature (roll like a log when turning in bed). 4. You may ride in a car for 20-30 minutes at a time. No driving until after your first visit with your doctor. 5. Frequent changes of position and restricting sitting to 30 minutes at a time will help limit the amount of back spasms and stiffness you may experience. 6. You may discontinue the use of ambulatory aids (cane, crutches, etc.) once your strength and confidence allow. 7. You may digital printer operator the shower and let water strike your incision when you arrive home at least once daily. Do not take a tub bath, sit in a hot tub or go into a swimming pool until after your first recheck in the office. SPECIAL CARE INSTRUCTIONS: VERY IMPORTANT TO READ AND REVIEW A. Your surgical incision has been closed with a cosmetic suture under the skin that will dissolve in about 6 weeks. In 14 days, you can use a pair of clean scissors and cut the suture that is left outside of the skin at the ends of your incision. 1. The small skin tapes can be removed 7 days after surgery if they have not fallen off by that point. 2. You may keep the wound open to air as much as possible to promote healing after post-op day number 5 unless told otherwise by your doctor. 3. If you think the wound looks like it is becoming infected (redness or worsening drainage) and/or you are experiencing fever, chill or worsening back pain and muscle spasms, contact the office so that we may evaluate you as soon as possible. B. Complications are uncommon, but please contact us if you have any signs or symptoms of: 1. wound infection (fever higher than 102.5 degrees F, redness, separation of wound, drainage, or increasing pain from the incision) 2. blood clots in legs (pain, swelling, redness and warmth in legs) 3. urinary tract infection (fever higher than 102.5 degrees F, burning upon urination or increased frequency of urination) 4. nerve problems (inability to walk on your toes or heels, numbness, loss of bowel or bladder control) 5. any other symptoms that concern you C. Please call the office at if you have any concerns or questions about your operation or recovery. D. No smoking! Smoking drastically decreases the chance of a solid fusion. E. Do not take any anti-inflammatory medications (Indocin, Advil, Motrin, Aspirin, Naprosyn, etc.) as these may inhibit the chance of a solid fusion. Tylenol is okay to take for pain. MANAGING PAIN AFTER SPINAL SURGERY 1. Narcotic medication is intended for short-term use and will be provided for surgical pain. Surgical pain usually lasts for a period of 4-6 weeks. Narcotic medication includes Percocet, Vicodin, Darvocet, Tylenol #3 or Lortab. 2. Longer-term pain is more appropriately treated with non-narcotic medication such as Tylenol ES. 3. Muscle spasm is not appropriately treated with narcotics. Muscle relaxers such as Soma, Flexeril or Skelaxin can be used along with Tylenol ES. 4. Remember that we all live with some "aches and pains". This is not unusual or uncommon after an injury or as we get older. a. Back pain is expected and may include muscle spasms for 4 to 6 weeks after surgery. The pain should gradually improve. If the pain worsens for no apparent reason, please contact the office. b. Intermittent leg pain may also be experienced and should not be concerned about unless it worsens for no apparent reason. If so, please contact the office. 5. We will provide appropriate medication within the normal guidelines of their prescribed use. We will also be very cautious and aware of potential abuse and extended duration of patients' medication needs. a. Pain medications are for your comfort and to assist with sleep and rest so that the tissue can heal. They are not provided in order to return to normal activity and should not be used through the day. To do so or worsening pain at night can result from ongoing tissue damage and development of tolerance to the prescribed medicine. 6. Please allow 2-3 days to process refills. Prescriptions will not be mailed but must be picked up at the office. FOLLOW UP VISIT: Keep your scheduled follow-up appointment. Any questions, please call the office at . Current Hospital Diet Patient's current hospital diet: AHA Diet (Heart Healthy) Discharge Diet Recommended Diet: Regular Diet Pending Studies Studies pending at discharge: no Medical Emergencies . Who to Call and When: Medical Emergencies: If at any time you feel your situation is an emergency, please call 911 immediately. . Non-Emergent Contact Non-Emergency issues call your: Surgeon Call Non-Emergent contact if: temperature is above 101.5, your pain is not controlled . "Provider Documentation" section prepared by Jorje Moreno. VTE Core Measure Inpt VTE Proph given/why not?: Unfractionated heparin SQ, T.E.D. Stockings
--- NOTE | 2016-10-26 07:10 | PROGRESS NOTE ---
DATE: 10/25/2016 SUBJECTIVE: Ms. Solis is doing quite well today. Her back pain is well controlled. She still has some symptoms of left anterior thigh, but she is able to stand and walk. She did well in physical therapy yesterday. She is taking 1 oxycodone every 12 hours for pain control. At this point, she would like to go home. She is not having any difficulties voiding. No other abdominal pain or calf tenderness. OBJECTIVE: On exam, she is afebrile. Vital signs are stable. Sensation is intact to light touch. She has full range of motion of the hips and knees. Strength and sensation both intact. Abdomen is soft and nontender. Calves are supple and nontender. ASSESSMENT: The patient is stable with improving symptoms and improving mobility. PLAN: At this point, she is ready for discharge to home. I have reviewed restrictions with her. She is going to resume her oxycodone that she already has at home. She will follow up with us in our office on the of this month for her 2-week postoperative visit. If she has any other questions or concerns prior to that, she can contact our office.
== END 2016-10-25 12:29 | disposition home or self-care (01) | DRG 948 ==
LOC: ENRESERVDT → ENRESERVTM → C.EDB 14:55 → C.MSN 21:39
PROVIDERS: ADMIT Internal Medicine; ATTEND Internal Medicine
DX: G89.18 Other acute postprocedural pain (principal); K59.09 Other constipation; G57.00 Lesion of sciatic nerve, unspecified lower limb; E03.9 Hypothyroidism, unspecified; F41.9 Anxiety disorder, unspecified; E87.6 Hypokalemia; M54.5 Low back pain

== ENCOUNTER 2017-08-18 19:19 | Emergency (ER) | payer MEDICARE, OTHER ==
[~2017-08-18] VITALS: Ht 157.5 cm; Wt 87.1 kg
[~2017-08-18 19:19] MED LIST changes: -HYDR-4079 PO; -HYDR-5688 PO; +MISCCAP80 PO; -Magnesium PO
[2017-08-18 19:27] VITALS: TEMP 36.8; Ht 157.5 cm; Wt 87.1 kg
[2017-08-18] MEDS ORDERED: IBUP-1427 PO (19:48)
[2017-08-18] MEDS ORDERED: HYDR-5806 PO (19:48)
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
[2017-08-18 21:45] VITALS: BP 121/78; PULSE 79; O2SAT 98
== END 2017-08-18 22:17 | disposition home or self-care (01) ==
LOC: C.EDB 19:20 → C.EDD 22:17
DX: M54.16 Radiculopathy, lumbar region (principal); M25.552 Pain in left hip; V47.6XXA Car passenger injured in collision with fixed or stationary object in traffic accident, initial encounter; M48.062 Spinal stenosis, lumbar region with neurogenic claudication; J45.909 Unspecified asthma, uncomplicated; E03.9 Hypothyroidism, unspecified; F41.8 Other specified anxiety disorders; Z96.653 Presence of artificial knee joint, bilateral; Z98.890 Other specified postprocedural states; Z88.6 Allergy status to analgesic agent; Z88.0 Allergy status to penicillin

== ENCOUNTER 2017-10-04 10:15 | Emergency (ER) | payer OTHER, MEDICARE ==
[~2017-10-04] VITALS: Ht 157.5 cm; Wt 90.6 kg
[~2017-10-04 10:15] MED LIST changes: +HYDR-5806 PO; +IBUP-1427 PO
[2017-10-04 10:23] VITALS: TEMP 36.7; Ht 157.5 cm; Wt 90.6 kg
[2017-10-04] MEDS ORDERED: PRED10TA PO (10:35)
[2017-10-04] MEDS ORDERED: ONDANSETRON INJ 2 MG/ML 2 ML VIAL IV STA (10:45)
[2017-10-04] MEDS ORDERED: MoRPHine SULFATE 4 MG/ML 1 ML CARP\\VIAL IV STA ×2 (10:45→13:43)
[2017-10-04 11:13] LABS: BASO % 0.4 %; BASO ABS # 0.04 K/uL (0-0.2); EOS % 0.3 %; EOS ABS # 0.03 K/uL (0-0.5); HEMATOCRIT 38.3 % (37-47); HEMOGLOBIN 13.3 g/dL (12.0-16.0); IG# 0.06 K/uL (0.00-0.02); LYMPH % 11.3 %; LYMPH ABS # 1.14 K/uL (1.2-3.4); MEAN CELL VOLUME 95.5 fL (80-100); MEAN CORPUSCULAR HEMOGLOBIN 33.2 pg (25-34); MEAN CORPUSCULAR HGB CONC 34.7 g/dl (32-36); MEAN PLATELET VOLUME 8.9 fL (7.4-10.4); MONO % 2.3 %; MONO ABS # 0.23 K/uL (0.11-0.59); NEUT % 85.1 %; NEUT ABS # 8.58 K/uL (1.4-6.5); NUCLEATED RED BLOOD CELL ABS 0.05 K/uL (0-0); PLATELET COUNT 489 K/uL (130-400); RED CELL DISTRIBUTION WIDTH CV 13.6 % (11.5-14.5); RED CELL DISTRIBUTION WIDTH SD 46.9 fL (36.4-46.3); WHITE BLOOD COUNT 10.08 K/uL (4.8-10.8)
[2017-10-04 11:34] LABS: CALCIUM 8.9 mg/dl (8.5-10.1); CREATININE 0.98 mg/dl (0.60-1.20); POTASSIUM 3.4 mmol/L (3.5-5.1)
--- NOTE | 2017-10-04 11:51 | DIAGNOSTIC IMAGING REPORT ---
L KNEE 1 OR 2 VIEWS ROUTINE CLINICAL HISTORY: Left knee pain. COMPARISON: Left knee radiographs August 18, 2017. FINDINGS: Alignment of the total left knee arthroplasty is anatomic. There is no fracture or unexpected radiopaque foreign body. The hardware is intact. IMPRESSION: 1. Status post total left knee arthroplasty. No fracture. 2. Trace left knee joint effusion. Electronically signed by: Genaro August M.D. 10/04/2017 11:50 AM Dictated Date/Time: 10/04/2017 11:48 AM
--- NOTE | 2017-10-04 13:16 | DIAGNOSTIC IMAGING REPORT ---
MRI OF THE LUMBAR SPINE WITHOUT CONTRAST CLINICAL HISTORY: Left leg pain and weakness. Back pain. COMPARISON STUDY: Lumbar spine MRI August 03, [address] August 18, 2017. TECHNIQUE: Utilizing a 1.5 Naya magnet and dedicated coil, multiplanar, multiecho imaging of the lumbar spine was performed without IV contrast. FINDINGS: For purposes of numbering on this exam, the L5-S1 disc space is assigned to axial image 2225. The patient is status post posterior decompression with bilateral pedicle screw fusion from L3 through L5. No compression fracture is noted. Slight loss of height of the superior plate of L1 with a Schmorl's node is unchanged. There is no intracanalicular mass or fluid collection. Conus terminates at the lower L1 level. Paravertebral soft tissues are unremarkable. L1-2: Central canal and neural foramen are patent. L2-3: There is moderate disc space narrowing. There is a disc bulge with superimposed left paracentral disc extrusion with inferior subligamentous migration. The disc extrusion measures 2 x 0.7 x 0.9 cm and results in moderate narrowing of the left lateral recess with probable mass effect upon the descending left L3 nerve root. There is mild narrowing of both neural foramen. L3-4: The central canal and neural foramen are patent. L4-5: The central canal and neural foramen are patent. L5-S1: There is marked disc space narrowing. There is minimal disc bulge. Central canal and neural foramen are patent. IMPRESSION: 1. Left paracentral disc extrusion at L2-L3 with inferior subligamentous migration. This disc herniation results in moderate narrowing of the left lateral recess with suspected mass effect upon the descending left L3 nerve root. 2. Status post L3-L5 decompression and bilateral posterior fusion. 3. No acute lumbar spine compression fracture. Electronically signed by: Genaro August M.D. 10/04/2017 1:15 PM Dictated Date/Time: 10/04/2017 1:06 PM
[2017-10-04] MEDS ORDERED: DEXAMETHASONE SOD INJ 4 MG/ML VIAL IV STA (13:46)
[2017-10-04 15:00] VITALS: BP 114/84; PULSE 91; O2SAT 95
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
== END 2017-10-04 15:25 | disposition home or self-care (01) ==
LOC: C.EDB 10:17 → C.EDC 15:25
DX: M51.36 Other intervertebral disc degeneration, lumbar region (principal); M54.42 Lumbago with sciatica, left side; G89.29 Other chronic pain; M62.81 Muscle weakness (generalized); F32.9 Major depressive disorder, single episode, unspecified; F41.9 Anxiety disorder, unspecified; J45.909 Unspecified asthma, uncomplicated; K59.00 Constipation, unspecified; G56.00 Carpal tunnel syndrome, unspecified upper limb; D58.0 Hereditary spherocytosis; E03.9 Hypothyroidism, unspecified; M48.062 Spinal stenosis, lumbar region with neurogenic claudication; Z90.81 Acquired absence of spleen; Z96.652 Presence of left artificial knee joint; Z88.0 Allergy status to penicillin; Z88.5 Allergy status to narcotic agent